=== PATIENT | male | born 1985 | race Two or more races ===

== ENCOUNTER 2017-02-17 11:44 | Emergency (ER) | payer SELFPAY ==
[2017-02-17] MEDS ORDERED: NS 1,000 ML IV ONE (12:00)
[2017-02-17] MEDS ORDERED: LORazepam 2 MG/ML INJ IVP ONE (12:00)
[2017-02-17] MEDS ORDERED: chlordiazePOXIDE 25 MG CAP PO ONE (12:00)
--- NOTE | 2017-02-17 12:06 | EDPHY ---
HPI/HX/ROS/PE/MDM Narrative: CHIEF COMPLAINT: Seizure HPI: The patient is a 31 y/o male, with a history of alcohol withdrawal seizures , arriving via EMS for evaluation after a witnessed seizure this morning in the grass. He normally drinks about 1/5th of vodka daily and his last alcohol intake was yesterday. He denies any pain or injury following the seizure today. He denies any current symptoms. REVIEW OF SYSTEMS: Aside from elements discussed in the HPI, a comprehensive 10-point review of systems was reviewed and is negative. PMH: Ulcerative colitis, hypertension, alcohol abuse and alcohol withdrawal seizures SOCIAL HISTORY: Homeless, alcohol abuse. PHYSICAL EXAM: General:Patient is alert, in no acute distress. ENT:Eyes are normal to inspection. Tongue fasciculations, ENT inspection otherwise normal. Neck: Normal inspection. Full range of motion. Respiratory:No respiratory distress. Breath sounds normal bilaterally. Cardiovascular: Tachycardic regular rate and rhythm. Strong peripheral pulses. Normal cap refill. Abdomen:The abdomen is nontender to palpation. There are no peritoneal signs. Back: Normal to inspection. No tenderness to palpation. Skin: Normal color. No rash. Warm and dry. Extremities: Normal appearance. Full range of motion. Neuro: Oriented x3. Normal motor function. Normal sensory function. ED Course: This is a 31 y/o male with a history of alcohol abuse and withdrawal seizures who presents to the ED following a witness seizure this morning. He is currently asymptomatic. Tongue fasciculations noted. He is neurovascularly intact. There is no indication for imaging. Plan for medical management with 50mg PO Librium, 2mg IV Ativan, and 1L IV NS. The 12 lead EKG was interpreted by myself. Sinus tachycardia rate 103. See hard copy and/or "tracemaster" electronic copy for interpretation. 1315: Reassessed patient. He is sitting up comfortably and watching TV. He is no longer tachycardic and feels ready to go home. If he decides to go to the [facility] we will give him a script for Librium. I've advised him to reduce his alcohol intake and follow up with his PCP. Return precautions given. - Data Points Medications Given: Discontinued Medications Chlordiazepoxide HCl (Librium) 50 mg PO EDNOW ONE Stop: 02/17/17 12:01 Last Admin: 02/17/17 12:12 Dose: 50 mg Sodium Chloride (Ns) 1,000 mls @ 0 mls/hr IV EDNOW ONE; Wide Open PRN Reason: Protocol Stop: 02/17/17 12:01 Last Admin: 02/17/17 12:12 Dose: 1,000 mls Lorazepam (Ativan Injection) 2 mg IVP EDNOW ONE Stop: 02/17/17 12:01 Last Admin: 02/17/17 12:12 Dose: 2 mg General Time Seen by Provider: 02/17/17 11:47 Initial Vital Signs: Initial Vital Signs Temperature (C) 36.7 C 02/17/17 11:53 Heart Rate 113 H 02/17/17 11:53 Respiratory Rate 12 02/17/17 11:53 Blood Pressure 142/82 H 02/17/17 11:53 O2 Sat (%) 95 02/17/17 11:53 O2 Delivery Mode Room Air Allergies/Adverse Reactions: No Known Allergies Allergy (Unverified 02/17/17 12:07) Home Medications: Medication Instructions Recorded NK [No Known Home Meds] 02/17/17 Departure - Departure Disposition: Home, Routine, Self-Care Clinical Impression: Alcohol withdrawal seizure Qualifiers: Complication of substance-induced condition: uncomplicated Qualified Code(s): F10.230 - Alcohol dependence with withdrawal, uncomplicated Condition: Good Instructions: Alcohol Withdrawal (ED) Additional Instructions: Go to the [facility] if you would like to detox. Follow up with your primary care provider for unimproved symptoms over the next 1-2 days. Avoid abusing alcohol. Return to the ED for worsening of condition. Referrals: [facility],. [Clinic] - As per Instructions [facility] Detox 24 Hours [Outside] - As per Instructions Report Scribed for: Vishnu Austin Report Scribed by: Deja Juarez Date of Report: 02/17/17 Time of Report: 12:06 Physician Review and Approval Statement: Portions of this note were transcribed by an ED scribe. I personally performed the history, physical exam, and medical decision making; and confirm the accuracy of the information in the transcribed note.
--- NOTE | 2017-02-17 12:15 | CPEKG ---
Heart Rate: 103 RR Interval: 583 P-R Interval: 180 QRSD Interval: 92 QT Interval: 376 QTC Interval: 492 P [facility]: 66 QRS [facility]: 72 T [place] [facility]: 45 EKG Severity - ABNORMAL ECG - EKG Impression: SINUS TACHYCARDIA EKG Impression: LATERAL INFARCT, OLD EKG Impression: PROLONGED QT INTERVAL Electronically Signed By: Guillermo Bennett 18-Feb-2017 16:29:11
[2017-02-17 12:18] VITALS: TEMP 98.4
[2017-02-17] MEDS ORDERED: CHLORDIAZEPOXIDE 25MG PREPK#6 BTL TAKEHOME ONE (14:02)
[2017-02-17 14:11] VITALS: BP 120/69; PULSE 105; RESP 16; O2SAT 96
== END 2017-02-17 14:31 | disposition home or self-care (01) ==
LOC: EDBD 11:44
DX: R56.9 Unspecified convulsions (principal); F10.230 Alcohol dependence with withdrawal, uncomplicated; I10 Essential (primary) hypertension; E86.9 Volume depletion, unspecified
CPT/HCPCS: 96374; J2060

== ENCOUNTER 2017-03-08 21:29 | Emergency (ER) | payer SELFPAY ==
[2017-03-08 21:46] VITALS: RESP 20
[2017-03-08] MEDS ORDERED: NS 1,000 ML IV ONE (22:12)
[2017-03-08] MEDS ORDERED: ACETAMINOPHEN 325 MG TAB PO ONE (22:12)
[2017-03-08] MEDS ORDERED: LORazepam 2 MG/ML INJ IVP ONE (22:13)
[2017-03-08 22:20] LABS: % IMMATURE GRANULYOCYTES 0.5 % (0.0-1.1); ABSOLUTE IMMATURE GRANULOCYTES 0.04 10^3/uL (0.00-0.10); ADD DIFF? NO; ADD MORPH? NO; ADD SCAN? NO; ATYPICAL LYMPHOCYTE FLAG 0 (0-99); FRAGMENT RBC FLAG 0 (0-99); HEMOGLOBIN 14.2 g/dL (13.7-17.5); LEFT SHIFT FLG 0 (0-99); LIPEMIA HEMOLYSIS FLAG 90 (0-99); MEAN CELL HEMOGLOBIN 31.9 pg (27.9-34.1); MEAN CELL HEMOGLOBIN CONCENTR. 33.8 g/dL (32.4-36.7); MEAN CELL VOLUME 94.4 fL (81.5-99.8); MEAN PLATELET VOLUME 9.7 fL (8.7-11.7); PLATELET CLUMPS FLAG 20 (0-99); PLATELET COUNT 155 10^3/uL (150-400); RED BLOOD CELL COUNT 4.45 10^6/uL (4.40-6.38); RED CELL DISTRIBUTION WIDTH 15.6 % (11.5-15.2)
[2017-03-08 22:30] LABS: ANION GAP 14 mEq/L (8-16); BILIRUBIN,TOTAL 1.2 mg/dL (0.1-1.4); CALCIUM 8.1 mg/dL (8.5-10.4); CARBON DIOXIDE 21 mEq/l (22-31); CHLORIDE 103 mEq/L (97-110); CREATININE 0.7 mg/dL (0.7-1.3); GLOMERULAR FILTRATION RATE > 60; GLUCOSE 137 mg/dL (70-100); INR 1.13 (0.83-1.16); POTASSIUM 3.7 mEq/L (3.5-5.2); PROTIME(PATIENT) 14.4 SEC (12.0-15.0); SODIUM 138 mEq/L (134-144)
[2017-03-09] MEDS ORDERED: NS 1,000 ML IV ONE (00:45)
--- NOTE | 2017-03-09 00:49 | EDPHY ---
H & P Stated Complaint: fever, from [facility] Source: Patient Exam Limitations: No limitations - Medical/Surgical History Hx Asthma: No Hx Chronic Respiratory Disease: No Hx Diabetes: No Hx Cardiac Disease: No Hx Renal Disease: No Hx Cirrhosis: No Hx Alcoholism: Yes Other PMH: withdrawal seizures, ETOH, abd surgery for ulcerative colitis, HTN. - Social History Smoking Status: Light smoker HPI/ROS: HPI: This is a 31-year-old male who presents with Chief Complaint: Fever Location: Body Quality: Fever Duration: 1 hour prior to arrival Signs and Symptoms: No cough, no chills, no abdominal pain, no nausea, no vomiting, no diarrhea, no neck stiffness, no sore throat, no wheezing, no body aches Timing: Unknown Severity: Mild Context: Patient was at the [facility] for alcohol dependence and they noted a temperature of a 101 F orally and sent patient to the ER for evaluation. Patient reports that he last drank yesterday morning. Admits to feeling tremulous; restless. Modifying Factors: No antipyretics given. Librium given but patient unable to tell time. Comment: ROS: Constitutional: No fever, no chills, no weight loss Eyes: No blurred vision Respiratory: No shortness of breath, no cough Cardiovascular: No chest pain Gastrointestinal: No nausea, no vomiting no diarrhea Genitourinary: No dysuria Extremities: No myalgias Neurologic: No weakness, no numbness Skin: No rashes Hematologic: No bruising, no bleeding (Carrie Knutson) - Physical Exam Exam: CONSTITUTIONAL: Chronically ill-appearing male who appears older than stated age, cooperative, awake and alert, no obvious distress HEENT: Atraumatic and normocephalic, PERRL, EOMI. Tympanic membranes clear. Oropharynx clear, no exudate and moist pink mucosa. Airway patent. No lymphadenopathy. No meningismus. Cardiovascular: Normal S1/S2, tachycardia, regular rhythm, without murmur rub or gallop. PULMONARY/CHEST: Symmetrical and nontender. Clear to auscultation bilaterally Good air movement. No accessory muscle usage. ABDOMEN: Soft, nondistended, nontender, no rebound, no guarding, no peritoneal signs, no masses or organomegaly. No CVAT. EXTREMITIES: 2/2 pulses, no deformities, no clubbing, no cyanosis or edema. NEUROLOGICAL: no focal neuro deficits. GCS 15. SKIN: Warm and dry, no erythema. no rash. Good capillary refill. (Carrie Knutson) Constitutional: Initial Vital Signs Temperature (C) 38.9 C H 03/08/17 21:44 Heart Rate 102 H 03/08/17 21:44 Respiratory Rate 20 03/08/17 21:44 Blood Pressure 113/59 L 03/08/17 21:44 O2 Sat (%) 92 03/08/17 21:44 O2 Delivery Mode Room Air Allergies/Adverse Reactions: No Known Allergies Allergy (Unverified 03/08/17 21:44) Home Medications: Medication Instructions Recorded NK [No Known Home Meds] 02/17/17 Medical Decision Making - Diagnostics Imaging Results: Imaging Impressions Chest X-Ray 03/08/17 22:12 Impression: Normal. ED Course/Re-evaluation: Labs, blood culture, urinalysis, chest x-ray Given 2 L of normal saline, IV Ativan, PO Librium and Tylenol CIWA=4 Suspect alcohol withdrawal. Chest x-ray my read shows no infiltrate/effusion/pneumothorax noted lactic acidosis of 2.5; aggressive hydration; suspect inflammatory response Still pending urinalysis Labs grossly unremarkable End of Shift: Signed out to Dr. Faulkner at 0200 pending repeat lactic acid, results of urinalysis and and suspect discharge back to the [facility] (Carrie Knutson) Differential Diagnosis: Adult fever including but not limited to viral syndromes including influenza, urinary tract infection, pneumonia and sepsis. (Carrie Knutson) Other Provider: PHYSICIAN DOCUMENTATION: The patient was evaluated and managed by the Physician Windows System Admin. My co- signature indicates that I have reviewed this chart and I agree with the findings and plan of care as documented. I am the secondary supervising physician. The patient remained stable. UA was unremarkable. Repeat lactate decreased from 2.5-2.2. Doubt sepsis given patient's normal vital signs. Likely a type B lactic acidosis. He will be [facility] back to [facility]. (Margarita Faulkner) - Data Points Laboratory Results: Laboratory Results 03/08/17 22:05 03/08/17 22:05 03/09/17 03/09/17 03/09/17 03:20 02:30 00:20 WBC RBC Hgb Hct MCV MCH MCHC RDW Plt Count MPV Neut % (Auto) Lymph % (Auto) [place] % (Auto) Eos % (Auto) Baso % (Auto) Nucleat RBC Rel Count Absolute Neuts (auto) Absolute Lymphs (auto) Absolute Monos (auto) Absolute Eos (auto) Absolute Basos (auto) Absolute Nucleated RBC Immature Gran % Immature Gran # PT INR APTT VBG Lactic Acid 2.2 mmol/L H mmol/L 2.5 mmol/L H mmol/L (0.7-2.1) (0.7-2.1) Sodium Potassium Chloride Carbon Dioxide Anion Gap BUN Creatinine Estimated GFR Glucose Calcium Total Bilirubin Urine Color YELLOW Urine Appearance CLEAR Urine pH 6.0 (5.0-7.5) Ur Specific [place] 1.013 (1.002-1.030) Urine Protein NEGATIVE (NEGATIVE) Urine Ketones NEGATIVE (NEGATIVE) Urine Blood NEGATIVE (NEGATIVE) Urine Nitrate NEGATIVE (NEGATIVE) Urine Bilirubin NEGATIVE (NEGATIVE) Urine Urobilinogen 4.0 EU H EU (0.2-1.0) Ur Leukocyte Esterase NEGATIVE (NEGATIVE) Urine RBC 1-3 /hpf /hpf (0-3) Urine WBC 1-3 /hpf /hpf (0-3) Ur Epithelial Cells TRACE /lpf /lpf (NONE-1+) Urine Mucus TRACE /lpf /lpf (NONE-1+) Urine Glucose 1+ H (NEGATIVE) 03/08/17 03/08/17 03/08/17 22:05 22:05 22:05 WBC 7.53 10^3/uL 10^3/uL (3.80-9.50) RBC 4.45 10^6/uL 10^6/uL (4.40-6.38) Hgb 14.2 g/dL g/dL (13.7-17.5) Hct 42.0 % % (40.0-51.0) MCV 94.4 fL fL (81.5-99.8) MCH 31.9 pg pg (27.9-34.1) MCHC 33.8 g/dL g/dL (32.4-36.7) RDW 15.6 % H % (11.5-15.2) Plt Count 155 10^3/uL 10^3/uL (150-400) MPV 9.7 fL fL (8.7-11.7) Neut % (Auto) 84.0 % H % (39.3-74.2) Lymph % (Auto) 5.2 % L % (15.0-45.0) [place] % (Auto) 9.8 % % (4.5-13.0) Eos % (Auto) 0.1 % L % (0.6-7.6) Baso % (Auto) 0.4 % % (0.3-1.7) Nucleat RBC Rel Count 0.0 % % (0.0-0.2) Absolute Neuts (auto) 6.32 10^3/uL 10^3/uL (1.70-6.50) Absolute Lymphs (auto) 0.39 10^3/uL L 10^3/uL (1.00-3.00) Absolute Monos (auto) 0.74 10^3/uL 10^3/uL (0.30-0.80) Absolute Eos (auto) 0.01 10^3/uL L 10^3/uL (0.03-0.40) Absolute Basos (auto) 0.03 10^3/uL 10^3/uL (0.02-0.10) Absolute Nucleated RBC 0.00 10^3/uL 10^3/uL (0-0.01) Immature Gran % 0.5 % % (0.0-1.1) Immature Gran # 0.04 10^3/uL 10^3/uL (0.00-0.10) PT 14.4 SEC SEC (12.0-15.0) INR 1.13 (0.83-1.16) APTT 34.0 SEC SEC (23.0-38.0) VBG Lactic Acid Sodium 138 mEq/L mEq/L (134-144) Potassium 3.7 mEq/L mEq/L (3.5-5.2) Chloride 103 mEq/L mEq/L (97-110) Carbon Dioxide 21 mEq/l L mEq/l (22-31) Anion Gap 14 mEq/L mEq/L (8-16) BUN 7 mg/dL mg/dL (7-23) Creatinine 0.7 mg/dL mg/dL (0.7-1.3) Estimated GFR > 60 Glucose 137 mg/dL H mg/dL (70-100) Calcium 8.1 mg/dL L mg/dL (8.5-10.4) Total Bilirubin 1.2 mg/dL mg/dL (0.1-1.4) Urine Color Urine Appearance Urine pH Ur Specific [place] Urine Protein Urine Ketones Urine Blood Urine Nitrate Urine Bilirubin Urine Urobilinogen Ur Leukocyte Esterase Urine RBC Urine WBC Ur Epithelial Cells Urine Mucus Urine Glucose Medications Given: Discontinued Medications Acetaminophen (Tylenol) 650 mg PO EDNOW ONE Stop: 03/08/17 22:13 Last Admin: 03/08/17 22:21 Dose: 650 mg Chlordiazepoxide HCl (Librium) 25 mg PO EDNOW ONE Stop: 03/09/17 00:51 Last Admin: 03/09/17 01:11 Dose: 25 mg Sodium Chloride (Ns) 1,000 mls @ 0 mls/hr IV EDNOW ONE; Wide Open PRN Reason: Protocol Stop: 03/08/17 22:13 Last Admin: 03/08/17 22:21 Dose: 1,000 mls Sodium Chloride (Ns) 1,000 mls @ 0 mls/hr IV EDNOW ONE; Wide Open PRN Reason: Protocol Stop: 03/09/17 00:46 Last Admin: 03/09/17 00:45 Dose: 1,000 mls Lorazepam (Ativan Injection) 1 mg IVP EDNOW ONE Stop: 03/08/17 22:14 Last Admin: 03/08/17 22:22 Dose: 1 mg Departure - Departure Disposition: Home, Routine, Self-Care Clinical Impression: Alcohol dependence Qualifiers: Substance use status: in withdrawal Complication of substance-induced condition : uncomplicated Qualified Code(s): F10.230 - Alcohol dependence with withdrawal , uncomplicated Fever Qualifiers: Fever type: unspecified Qualified Code(s): R50.9 - Fever, unspecified Condition: Good Instructions: Fever in Adults (ED) Referrals: [facility] [Outside] - As per Instructions
[2017-03-09] MEDS ORDERED: chlordiazePOXIDE 25 MG CAP PO ONE (00:50)
[2017-03-09 01:25] LABS: LACGHOST ORDER
[2017-03-09 02:41] LABS: COLOR YELLOW; LEUKOCYTE ESTERASE,URINE NEGATIVE (NEGATIVE); NITRITE,URINE NEGATIVE (NEGATIVE)
[2017-03-09 02:43] LABS: MUCUS TRACE /lpf (NONE-1+)
[2017-03-09 03:42] VITALS: O2SAT 93
[2017-03-09] MEDS ORDERED: CHLORDIAZEPOXIDE 25MG PREPK#6 BTL TAKEHOME ONE (04:37)
[2017-03-09] MEDS ORDERED: ACETAMINOPHEN 325 MG TAB ONE (04:52)
[2017-03-09] MEDS ORDERED: ACETAMINOPHEN 500 MG TAB PO ONE (05:00)
[2017-03-09 05:05] VITALS: BP 120/75; PULSE 89; TEMP 99.5
== END 2017-03-09 05:05 | disposition home or self-care (01) ==
LOC: EDUNIT#
DX: R50.9 Fever, unspecified (principal); F10.230 Alcohol dependence with withdrawal, uncomplicated; F17.200 Nicotine dependence, unspecified, uncomplicated; E86.9 Volume depletion, unspecified; I10 Essential (primary) hypertension
CPT/HCPCS: 96374; J2060

== ENCOUNTER 2017-03-09 11:07 | Inpatient (IN) | payer MEDICAID, OTHER ==
[2017-03-09] MEDS ORDERED: LORazepam 2 MG/ML INJ IVP ONE (11:15)
[2017-03-09] MEDS ORDERED: NS 1,000 ML IV ONE (11:15)
[2017-03-09] MEDS ORDERED: VANCOMYCIN HCL/NORMAL SALINE 250 ML IV ONE (11:15)
[2017-03-09] MEDS ORDERED: FOLIC ACID 1 MG TAB PO ONE (11:16)
[2017-03-09] MEDS ORDERED: THIAMINE HCL 100 MG TAB PO ONE (11:16)
--- NOTE | 2017-03-09 11:20 | EDPHY ---
H & P Stated Complaint: Left Thumb Infection - Personal History Current Tetanus Diphtheria and Acellular Pertussis (TDAP): Yes Tetanus Vaccine Date: 2007 - Medical/Surgical History Hx Asthma: No Hx Chronic Respiratory Disease: No Hx Diabetes: No Hx Cardiac Disease: No Hx Renal Disease: No Hx Cirrhosis: No Hx Alcoholism: Yes Other PMH: withdrawal seizures, ETOH, abd surgery for ulcerative colitis, HTN. - Social History Smoking Status: Light smoker Time Seen by Provider: 03/09/17 11:11 HPI/ROS: CHIEF COMPLAINT: "My thumbs infected" HISTORY OF PRESENT ILLNESS: 31-year-old homeless male, history of cutaneous MRSA, up-to-date tetanus, arrives via ambulance. [facility] and this morning and called 911 because of progressive pain swelling to his left thumb with lymphangitic streaking. States that he sustained a puncture wound to his left thumb 3 days ago however is not sure how this happened. He has progressively decreasing range of motion Denies exposure to high speed projectiles or high-pressure hoses or paint. Denies fever or chills. PRIMARY CARE PROVIDER: REVIEW OF SYSTEMS: A ten point review of systems was performed and is negative with the exception of the items mentioned in the HPI PAST MEDICAL & SURGICAL HISTORY: alcoholism SOCIAL HISTORY: homeless. History of alcoholism. Last drink of alcohol last evening PHYSICAL EXAM (Prior to examination, patient consented to physical exam, hands were washed and my usual and customary physical exam procedures followed) 1) GENERAL: Well-developed, well-nourished, alert and oriented. Appears anxious 2) HEAD: Normocephalic, atraumatic 3) HEENT: Pupils equal, round, reactive to light bilaterally. Sclera anicteric. 4) NECK: Full range of motion, no meningeal signs. 5) LUNGS: Clear auscultation bilaterally, no wheezes, no rhonchi, no retractions. 6) HEART: Regular rate and rhythm, no murmur, no heave, no gallop. 7) ABDOMEN: No guarding, no rebound, no focal tenderness, negative McBurney's, negative Sanon's, negative Rovsing's, negative peritoneal sign, 8) MUSCULOSKELETAL: left upper extremity: Left thumb positive kanavel sign, puncture wound noted, no crepitus. Lymphangitic streaking extending to his proximal bicep , positive axillary adenopathy . Moving all extremities, no focal areas of tenderness, no obvious trauma. No peripheral edema or discoloration. 9) BACK: No CVA tenderness, no midline vertebral tenderness, no fluctuance, no step-off, no obvious trauma, no visual or palpable abnormality. 10) SKIN: No rash, no petechiae. 11) Psychiatric: Patient is oriented X 3, there is no agitation. DIFFERENTIAL DIAGNOSIS: in no particular include but limited to cellulitis, infectious tenosynovitis, necrotizing fasciitis (Jl Lugo [place]) Constitutional: Initial Vital Signs Temperature (C) 37.1 C 03/09/17 11:13 Heart Rate 94 03/09/17 11:13 Respiratory Rate 18 03/09/17 11:13 Blood Pressure 115/74 03/09/17 11:13 O2 Sat (%) 97 03/09/17 11:13 O2 Delivery Mode Room Air Allergies/Adverse Reactions: No Known Allergies Allergy (Unverified 03/09/17 11:12) Home Medications: Medication Instructions Recorded NK [No Known Home Meds] 02/17/17 Medical Decision Making - Diagnostics Imaging Results: Imaging Impressions Hand X-Ray 03/09/17 11:17 Impression: Left thumb soft tissue swelling without definite fracture. ED Course/Re-evaluation: I have discussed case Dr. Newton Martinez in the ER. The patient has exam findings concerning for infectious tenosynovitis with lymphangitis extending to his axilla. He is afebrile. I do not think the patient is septic. Doubt necrotizing fasciitis. He is homeless without outpatient medical support. I recommended admission to the hospital. Will consult with Hand surgery and hospitalist. In addition, he has a history of alcoholism and is starting to show no signs symptoms of acute alcohol withdrawal. Will administer IV benzodiazepine , supplemental folate and thiamine. doubt delirium tremens at this time. 11:50 a.m.: Phone consultation with hospitalist Blanca admit to Dr. Moreland 12:30 p.m.: Phone consultation with Dr. Gualberto Francisco who will consult hand surgery (Jl Lugo) I did not see this patient while he was in the emergency department. However his care was discussed with the PA while the patient was in the department. I agree with treatment plan and management (Newton Martinez) - Data Points Laboratory Results: Laboratory Results 03/09/17 11:30 03/09/17 11:30 03/09/17 03/09/17 03/09/17 11:30 11:30 11:30 WBC 7.90 10^3/uL 10^3/uL (3.80-9.50) RBC 4.31 10^6/uL L 10^6/uL (4.40-6.38) Hgb 13.9 g/dL g/dL (13.7-17.5) Hct 40.5 % % (40.0-51.0) MCV 94.0 fL fL (81.5-99.8) MCH 32.3 pg pg (27.9-34.1) MCHC 34.3 g/dL g/dL (32.4-36.7) RDW 15.1 % % (11.5-15.2) Plt Count 142 10^3/uL L 10^3/uL (150-400) MPV 9.6 fL fL (8.7-11.7) Neut % (Auto) 78.9 % H % (39.3-74.2) Lymph % (Auto) 9.2 % L % (15.0-45.0) [place] % (Auto) 10.8 % % (4.5-13.0) Eos % (Auto) 0.1 % L % (0.6-7.6) Baso % (Auto) 0.6 % % (0.3-1.7) Nucleat RBC Rel Count 0.0 % % (0.0-0.2) Absolute Neuts (auto) 6.23 10^3/uL 10^3/uL (1.70-6.50) Absolute Lymphs (auto) 0.73 10^3/uL L 10^3/uL (1.00-3.00) Absolute Monos (auto) 0.85 10^3/uL H 10^3/uL (0.30-0.80) Absolute Eos (auto) 0.01 10^3/uL L 10^3/uL (0.03-0.40) Absolute Basos (auto) 0.05 10^3/uL 10^3/uL (0.02-0.10) Absolute Nucleated RBC 0.00 10^3/uL 10^3/uL (0-0.01) Immature Gran % 0.4 % % (0.0-1.1) Immature Gran # 0.03 10^3/uL 10^3/uL (0.00-0.10) PT 15.2 SEC H SEC (12.0-15.0) INR 1.20 H (0.83-1.16) APTT 35.7 SEC SEC (23.0-38.0) VBG Lactic Acid Sodium 137 mEq/L mEq/L (134-144) Potassium 3.2 mEq/L L mEq/L (3.5-5.2) Chloride 104 mEq/L mEq/L (97-110) Carbon Dioxide 23 mEq/l mEq/l (22-31) Anion Gap 10 mEq/L mEq/L (8-16) BUN 7 mg/dL mg/dL (7-23) Creatinine 0.6 mg/dL L mg/dL (0.7-1.3) Estimated GFR > 60 Glucose 97 mg/dL mg/dL (70-100) Calcium 8.0 mg/dL L mg/dL (8.5-10.4) Total Bilirubin 1.9 mg/dL H D mg/dL (0.1-1.4) 03/09/17 11:20 WBC RBC Hgb Hct MCV MCH MCHC RDW Plt Count MPV Neut % (Auto) Lymph % (Auto) [place] % (Auto) Eos % (Auto) Baso % (Auto) Nucleat RBC Rel Count Absolute Neuts (auto) Absolute Lymphs (auto) Absolute Monos (auto) Absolute Eos (auto) Absolute Basos (auto) Absolute Nucleated RBC Immature Gran % Immature Gran # PT INR APTT VBG Lactic Acid 1.4 mmol/L D mmol/L (0.7-2.1) Sodium Potassium Chloride Carbon Dioxide Anion Gap BUN Creatinine Estimated GFR Glucose Calcium Total Bilirubin Medications Given: Discontinued Medications Folic Acid (Folic Acid) 1 mg PO EDNOW ONE Stop: 03/09/17 11:17 Last Admin: 03/09/17 11:20 Dose: 1 mg Sodium Chloride (Ns) 1,000 mls @ 0 mls/hr IV ONCE ONE PRN Reason: Wide Open Stop: 03/09/17 11:16 Last Admin: 03/09/17 11:21 Dose: 1,000 mls Vancomycin/Sodium Chloride (Vancomycin 1 Gm (Premix)) 250 mls @ 250 mls/hr IV EDNOW ONE PRN Reason: Protocol Stop: 03/09/17 12:14 Last Admin: 03/09/17 11:21 Dose: 250 mls Ketorolac Tromethamine (Toradol) 30 mg IVP EDNOW ONE Stop: 03/09/17 12:16 Last Admin: 03/09/17 12:17 Dose: 30 mg Lorazepam (Ativan Injection) 2 mg IVP EDNOW ONE Stop: 03/09/17 11:16 Last Admin: 03/09/17 11:21 Dose: 2 mg Thiamine HCl (Vitamin B-1) 100 mg PO EDNOW ONE Stop: 03/09/17 11:17 Last Admin: 03/09/17 11:20 Dose: 100 mg Departure - Departure Disposition: [facility] Clinical Impression: withdrawl from alcohol, Infectious flexor tenosynovitis left samantha Condition: Fair
[2017-03-09 11:39] LABS: % IMMATURE GRANULYOCYTES 0.4 % (0.0-1.1); ABSOLUTE IMMATURE GRANULOCYTES 0.03 10^3/uL (0.00-0.10); ADD DIFF? NO; ADD MORPH? NO; ADD SCAN? NO; ATYPICAL LYMPHOCYTE FLAG 0 (0-99); FRAGMENT RBC FLAG 0 (0-99); HEMATOCRIT 40.5 % (40.0-51.0); HEMOGLOBIN 13.9 g/dL (13.7-17.5); LEFT SHIFT FLG 10 (0-99); LIPEMIA HEMOLYSIS FLAG 90 (0-99); MEAN CELL HEMOGLOBIN 32.3 pg (27.9-34.1); MEAN CELL HEMOGLOBIN CONCENTR. 34.3 g/dL (32.4-36.7); MEAN PLATELET VOLUME 9.6 fL (8.7-11.7); PLATELET CLUMPS FLAG 10 (0-99); PLATELET COUNT 142 10^3/uL (150-400); RED BLOOD CELL COUNT 4.31 10^6/uL (4.40-6.38); RED CELL DISTRIBUTION WIDTH 15.1 % (11.5-15.2)
[2017-03-09 11:50] LABS: INR 1.2 (0.83-1.16); PROTIME(PATIENT) 15.2 SEC (12.0-15.0)
[2017-03-09 11:51] LABS: APTT 35.7 SEC (23.0-38.0)
[2017-03-09 12:11] LABS: ANION GAP 10 mEq/L (8-16); BILIRUBIN,TOTAL 1.9 mg/dL (0.1-1.4); CARBON DIOXIDE 23 mEq/l (22-31); CHLORIDE 104 mEq/L (97-110); CREATININE 0.6 mg/dL (0.7-1.3); GLOMERULAR FILTRATION RATE > 60; GLUCOSE 97 mg/dL (70-100); POTASSIUM 3.2 mEq/L (3.5-5.2); SODIUM 137 mEq/L (134-144)
[2017-03-09] MEDS ORDERED: KETOROLAC 30 MG/1 ML SDV IVP ONE (12:15)
--- NOTE | 2017-03-09 13:29 | GCON ---
[f rep st] CONSULTATION PLASTIC SURGERY CONSULTATION DATE OF CONSULTATION: 03/09/2017 HISTORY OF PRESENTING COMPLAINT: The patient is a 31-year-old homeless man, who apparently has a his tory of cutaneous MRSA who sustained some kind of injury to his left thumb in the last few days that he does not recall. He has had increasing pain and swelling in the past couple days. PAST MEDICAL HISTORY: Positive for alcoholism. PAST SURGICAL HISTORY: Appendectomy and apparently some kind of peptic ulcer disease. SOCIAL HISTORY: Tetanus status is up to date. PHYSICAL EXAMINATION: VITAL SIGNS: He is afebrile. Vitals are stable. EXTREMITIES: Examination o f the relevant region shows acute swelling of the distal segment, particularly the volar pad of the l eft thumb. There is a small puncture wound evident on the radial side of the thumb just lateral to t he lateral nail fold area. He is acutely tender over this area and tenderness does extend proximal t o the pad over the flexor surface of the thumb, but it is markedly less tender over the flexor tendon . Redness extends up above the arm in the form of lymphangitic streaks that extended right up to the axilla, which is itself tender. Movement of the thumb is limited, but only moderately. LABORATORY DATA: Lab investigations reveal that his white count is not elevated. X-ray does not show any sign of foreign body. IMPRESSION AND PLAN: Lymphangitis and cellulitis of left hand and arm. I do not think there is any sign of tenosynovitis or of a joint infection. Agree with antibiotic treatment and coverage for resi stant Staphylococcus. I will continue to follow him in the next day or two. /[id number]/MODL
[2017-03-09] MEDS ORDERED: ONDANSETRON 4 MG/2 ML VIAL IVP PRN (13:46)
[2017-03-09] MEDS ORDERED: HYDROmorphONE/DILAUDID 1 MG/ML INJ IVP PRN (13:46)
[2017-03-09] MEDS ORDERED: LORazepam 2 MG/ML INJ IVP PRN ×2 (13:46)
[2017-03-09] MEDS ORDERED: MAG HYDROX/AL HYDROX/SIMETH 30 ML UDCUP PO PRN (13:46)
[2017-03-09] MEDS ORDERED: PROMETHAZINE HCL 25 MG/ML INJ IVP PRN (13:46)
[2017-03-09] MEDS ORDERED: ONDANSETRON DISINTEGRATING 4 MG TAB PO PRN (13:46)
[2017-03-09] MEDS ORDERED: PROTOCOL K PHOSPHATE 1 DOSE IV PRN (15:45)
[2017-03-09] MEDS ORDERED: PROTOCOL POTASSIUM 1 DOSE MISC PRN (15:45)
[2017-03-09] MEDS ORDERED: PROTOCOL MAGNESIUM 1 DOSE IV PRN (15:45)
[2017-03-09] MEDS: oxyCODONE IR 5 MG TAB PO PRN ×2 (16:14→22:52)
[2017-03-09] MEDS: LORazepam 1 MG TAB PO PRN (16:14)
[2017-03-09] MEDS ORDERED: POTASSIUM CL 10 MEQ TAB PO ONE ×2 (16:26→22:09)
--- NOTE | 2017-03-09 16:31 | GHP ---
[f rep st] HISTORY AND PHYSICAL DATE OF ADMISSION: 03/09/2017 CHIEF COMPLAINT: Left thumb swelling and pain. HISTORY: This is a 31-year-old homeless man who has a history of cutaneous MRSA as well as alcohol a buse and withdrawal, who presents after [facility] morning with compl aints of progressive pain and swelling of the left thumb with streaking up his left arm. The patient is uncertain what happened to his thumb, but states he had some sort of puncture wound to the thumb. He has not had fevers or chills. He does continue to have symptoms of withdrawal. He states he pl ans on quitting alcohol. PAST MEDICAL HISTORY: Includes alcohol abuse with withdrawal and alcohol withdrawal-related seizures . FAMILY HISTORY: This was reviewed and is unremarkable. SOCIAL HISTORY: The patient is a heavy drinker, though he has a hard time describing exactly how muc h alcohol he drinks. He states his last drink was last night. He is homeless. REVIEW OF SYSTEMS: A 10-point review of systems obtained and negative except as per HPI. HOME MEDICATIONS: None. ALLERGIES: None. PHYSICAL EXAM: VITAL SIGNS: BP 125/75, heart rate 83, respiratory rate 16, O2 sat 96% on room air, temperature is 37.1. GENERAL APPEARANCE: Well-developed/well-nourished man. He is tremulous. He i s in no acute distress. EYES: Anicteric. HENT: Oropharynx clear. CARDIOVASCULAR: Regular rate a nd rhythm. No MRG. PULMONARY: CTA bilaterally to anterior exam. ABDOMEN: Soft, positive bowel so unds. EXTREMITIES: No clubbing, cyanosis, or edema. SKIN: There is a puncture wound with purulent drainage coming from the distal left thumb. There is lymphangitic streaking up the left arm. Range of motion seems to be intact. NEURO/PSYCH: Tremulous but otherwise oriented, appropriate, pleasant . CLINICAL DATA: Labs reviewed. CBC remarkable for white blood cell count of 7.9. Chemistry is notab le for a potassium of 3.2 and a bilirubin of 1.9. Hand x-ray: This was personally reviewed and interpreted and shows left thumb soft tissue swelling w ithout fracture. ASSESSMENT/PLAN: A 31-year-old homeless male with alcohol abuse presenting with left hand cellulitis and lymphangitis, as well as alcohol withdrawal. 1. Lymphangitis/cellulitis. This was evaluated by Dr. Francisco, and he did not feel there was any sign of tenosynovitis or joint infection. He has been started on IV vancomycin empirically. Cultures peña ve been drawn and are pending. He is hemodynamically stable without signs of sepsis. Will ask ID to get involved as well. 2. Alcohol abuse and withdrawal. The patient continues to have withdrawals. Last drink was last ni ght. He does have a history of severe withdrawal including withdrawal seizures. Will monitor on CIW A. Will start some scheduled Librium. 3. Hypokalemia in the setting of heavy alcohol abuse and likely poor p.o. intake. Will start electr olyte protocol. 4. Elevated bilirubin. Will check a full liver function panel and trend. Suspect likely due to alc oholic hepatitis. 5. Disposition. Observation status. Will need less than 48 hours stay for evaluation and managemen t of above. /[id number]/MODL
[2017-03-09 18:48] LABS: BILIRUBIN,TOTAL 1.9 mg/dL (0.1-1.4); BILIRUBIN-CONJUGATED 0.7 mg/dL (0.0-0.5); BILIRUBIN-UNCONJUGATED 1.2 mg/dL (0.0-1.1); TOTAL PROTEIN 6.5 g/dL (6.3-8.2)
[2017-03-09 19:01] LABS: MAGNESIUM 1.5 mg/dL (1.6-2.3); POTASSIUM 3.7 mEq/L (3.5-5.2)
[2017-03-09] MEDS: VANCOMYCIN 1.25 GM in D5W 250 ML IV SCH (22:53)
[2017-03-10 04:49] LABS: % IMMATURE GRANULYOCYTES 0.4 % (0.0-1.1); ABSOLUTE IMMATURE GRANULOCYTES 0.03 10^3/uL (0.00-0.10); ADD DIFF? NO; ADD MORPH? NO; ADD SCAN? NO; ATYPICAL LYMPHOCYTE FLAG 0 (0-99); FRAGMENT RBC FLAG 0 (0-99); HEMOGLOBIN 13.8 g/dL (13.7-17.5); LEFT SHIFT FLG 20 (0-99); LIPEMIA HEMOLYSIS FLAG 80 (0-99); MEAN CELL HEMOGLOBIN 31.8 pg (27.9-34.1); MEAN CELL HEMOGLOBIN CONCENTR. 33.7 g/dL (32.4-36.7); MEAN CELL VOLUME 94.5 fL (81.5-99.8); MEAN PLATELET VOLUME 10.2 fL (8.7-11.7); PLATELET CLUMPS FLAG 30 (0-99); PLATELET COUNT 138 10^3/uL (150-400); RED BLOOD CELL COUNT 4.34 10^6/uL (4.40-6.38); RED CELL DISTRIBUTION WIDTH 14.6 % (11.5-15.2)
[2017-03-10 05:09] LABS: ALANINE AMINOTRANSFERASE 92 IU/L (21-72); ALBUMIN 3.1 g/dL (3.5-5.0); ALKALINE PHOSPHATASE 125 IU/L (38-126); ANION GAP 10 mEq/L (8-16); ASPARTATE AMINOTRANSFERASE 63 IU/L (17-59); BILIRUBIN,TOTAL 1.7 mg/dL (0.1-1.4); CALCIUM 8.4 mg/dL (8.5-10.4); CARBON DIOXIDE 22 mEq/l (22-31); CHLORIDE 104 mEq/L (97-110); CREATININE 0.6 mg/dL (0.7-1.3); GLOMERULAR FILTRATION RATE > 60; GLUCOSE 84 mg/dL (70-100); MAGNESIUM 1.7 mg/dL (1.6-2.3); POTASSIUM 3.8 mEq/L (3.5-5.2); SODIUM 136 mEq/L (134-144); TOTAL PROTEIN 6.2 g/dL (6.3-8.2)
[2017-03-10] MEDS: THIAMINE HCL 100 MG TAB PO SCH (08:43)
[2017-03-10] MEDS: LORazepam 1 MG TAB PO PRN ×3 (08:43→19:08)
[2017-03-10] MEDS: oxyCODONE IR 5 MG TAB PO PRN ×3 (08:43→19:08)
[2017-03-10] MEDS: ACETAMINOPHEN 325 MG TAB PO PRN (08:43)
[2017-03-10] MEDS: FOLIC ACID 1 MG TAB PO SCH (08:44)
[2017-03-10] MEDS: MULTIVITAMINS 1 EACH TAB PO SCH (08:44)
[2017-03-10] MEDS ORDERED: POTASSIUM CL 10 MEQ TAB PO ONE (10:35)
[2017-03-10] MEDS ORDERED: MAGNESIUM SULF 1 GM/DEXTROSE 100 ML IV ONE (10:36)
[2017-03-10] MEDS: VANCOMYCIN 1.25 GM in D5W 250 ML IV SCH (11:06)
--- NOTE | 2017-03-10 11:59 | HOSPPROG ---
Hospitalist Progress Note Assessment/Plan: 31 yo homeless M presenting with pain/swelling in left thumb with streaking up his arm to his axilla # cellulitis/lymphangitis: involving the left thumb and extending to left axilla. Seen by hand surgery and they do not feel that this requires surgical intervention at this time but will continue to follow. On exam, thumb appears possibly slightly more swollen but purulent drainage has stopped. Continue vancomycin for now, blood cultures with ngtd. ID to evaluate to help with abx choice. # h/o cutaneous MRSA: will continue vanco for now pending culture data # etoh abuse and w/d: patient continues to have e/o etoh withdrawal with tremulousness today, he feels as if the withdrawal is improving overall, will continue ciwa/mvi/thiamine/folate # IP status, given ongoing withdrawal and only minimal improvement in cellulitis he will require > 48 hours stay Reviewed care plan with ID. Subjective: no significant overnight events, patient states his hand feels about the same since yesterday, thinks the withdrawal is improving some Objective: Vital Signs Temp Pulse Resp BP Pulse Ox 36.9 C 76 14 129/76 H 96 03/10/17 08:00 03/10/17 08:00 03/10/17 08:00 03/10/17 08:00 03/10/17 08:00 Laboratory Results 03/10/17 04:18 03/10/17 04:18 03/09/17 03/10/17 03/11/17 05:59 05:59 05:59 Intake Total 2000 Output Total 2049 500 Balance -50 -500 PT 15.2 SEC (12.0-15.0) H 03/09/17 11:30 INR 1.20 (0.83-1.16) H 03/09/17 11:30 awake alert anicteric op clear rrr no mrg cta to ant exam soft nt nd left thumb with significant edema, dec rom, drainage has stopped, streaking erythema still present but decreased tremulous anxious oriented ICD10 Worksheet Patient Problems: Problems Problem Status Onset Cellulitis Acute
[2017-03-10] MEDS: ceFAZolin 2 GM/DEXTROSE 100 ML IV SCH ×2 (13:46→22:05)
--- NOTE | 2017-03-10 14:12 | GCON ---
[f rep st] CONSULTATION INFECTIOUS DISEASE CONSULTATION DATE OF CONSULTATION: 03/10/2017 REFERRING PHYSICIAN: Tiesha Moreland MD REASON FOR CONSULTATION: Left thumb cellulitis of metastatic spread. CHIEF COMPLAINT: Swollen left thumb and right arm. HISTORY OF PRESENT ILLNESS: This is a 31-year-old male with a past medical history significant for a lcoholism, previous injection drug usage with meth and heroin, depression, homeless, who states that he has had progressive swelling and pain over the left thumb over the past 1 week. He isn't sure wha t happened to his thumb. He does not know if he injured it, or if there was some type of penetrating injury. He does have a puncture wound to the th umb. There was pus draining out yesterday. He denies fevers or chills. He states that there has be en redness spreading up his forearm as well, and he has quite a bit of pain involving his thumb. He had an x-ray of the thumb, which showed no foreign body or gas in the soft tissues. He was seen by h and surgery, Dr. Francisco, who clinically felt he did not have tenosynovitis. He was started on vancomy [place]. Blood cultures x2 sets were drawn and today they are growing out group A strep in all 4 bottles from the . He had some blood cultures done on the as well, and those are not growing anythin g as of right now. Apparently, he came to the ED twice, once late in the evening on the , into ea y morning , and then came back again on the . The patient states that the redness is maybe s lightly better, but continues to be present over the forearm. Infectious Disease is now consulted fo r further evaluation and opinion. REVIEW OF SYSTEMS: GENERAL: Denied any fever, chills. HEAD: No headaches. EYES: No change in vi mikie. ENT: No sore throat, difficulty swallowing, ear pain, or ear drainage. CARDIOVASCULAR: Alexander es any chest pain or rapid heartbeat. RESPIRATORY: Denied any shortness of breath, cough or sputum production. ABDOMEN: No nausea, vomit ing, abdominal pain, or diarrhea. : Denied dysuria or hematuria. BACK: No back pain. MUSCULOSK ELETAL: No other joint pains or muscle aches, other than what was stated above. SKIN: No other hever hes or open wounds, other than what was stated above. The rest of a 10-point review of systems essen tially negative except for above. PAST MEDICAL HISTORY: Significant for alcohol abuse, alcohol withdrawal, related seizures, history o f injection, drug use with meth and heroin, depression, previous history of suicidal ideation, was st della in . Per previous dictation, there was history of cutaneous MRSA, although, in inocente hughes in system, I see no cultures obtained that document that over the past couple of years. PAST SURGICAL HISTORY: Significant for appendectomy and some other type of surgery, where he states he had ulcers. It is not clear what he is speaking about. ALLERGIES: No known drug allergies. SOCIAL HISTORY: He smokes several cigarettes a day. He drinks a 5th each day. He denies using illi cit drugs currently. He does use marijuana occasionally. He is homeless. FAMILY HISTORY: Significant for diabetes. MEDICATIONS: As per AUG. PHYSICAL EXAMINATION: VITAL SIGNS: Temperature current 36.9, T-max was actually on the 8th at 38.9, pulse 76, respiratory rate is 14, blood pressure 129/76. Saturations are 96% on room air. GENERAL: Patient is sitting up in bed, in no acute respiratory distress. Awake, alert, and oriented x3. HE ENT: Head is normocephalic, atraumatic. Hair is red. Eyes without conjunctival injection or petech iae noted. Oropharynx is clear. No ulcers or thrush appreciated. CARDIOVASCULAR: S1, S2. Regular rate and rhythm. No obvious murmurs appreciated. RESPIRATORY: Cl ear to auscultate bilaterally. No rhonchi or rales appreciated. ABDOMEN: Positive bowel sounds in all 4 quadrants. Soft, nontender, nondistended. No organomegaly appreciated. EXTREMITIES: No lowe r extremity edema. MUSCULOSKELETAL: No obvious joint effusions in the lower extremities. SKIN: Pe rtinent findings, left thumb diffusely swollen with no obvious drainage at present. There is some ma ceration of the soft tissues, especially at the distal tip, with pain on palpation. There is celluli tis extending from the thumb into the forearm lymphangitic spread. SKIN: Warm to touch. LABORATORY DATA: White blood cell count of 7.0, hemoglobin 13.8, platelets are 138, neutrophils 65%. Sodium 136, potassium 3.8, chloride 74, bicarb 22, BUN is 7, creatinine 0.6. AST 63, ALT 62, alk p hos 125, total bilirubin 1.7. Urinalysis: Negative nitrites, negative leuk esterase, WBCs 1-3. Blo od cultures, again as mentioned, 4 out of 8 bottles positive for gram-positive cocci in chains, sugge stive of group A strep by PCR, from the . Imaging results have all been reviewed by me and are stated above. ASSESSMENT: 1. Group A strep bacteremia/sepsis. 2. Left thumb cellulitis with lymphangitic spread and possibly an abscess. 3. Elevated liver function tests. 4. History of alcohol abuse. PLAN: At this point in time, given group A strep in the blood cultures, likely this process is drive n by that. We will change vancomycin to Ancef for more directive therapy. We will repeat blood cult ures in the a.m., to follow course of therapy. Would check an HIV, hepatitis C and hepatitis B serol ogies. The patient gave me verbal consent. Would also recommend MRI to further evaluate for abscess pocket, tenosynovitis, etc. Thank you very much for providing this opportunity to care for patient in consultation. /[id number]/MODL
--- NOTE | 2017-03-10 17:08 | ASMTCMCOM ---
CM Note CM Note Notes: Pt was admitted with L thumb cellulitis. Seen by DONATO vasquez changed to Ancef, cultures pending. Pt is homeless and from [place]. Receives health care through [facility] in [facility] of MRSA, etoh abuse and withdrawal w/seizures. Currently on CIWA protocol. CM will follow for any d/c needs. Date Signed: 03/10/2017 02:42 PM Electronically Signed By:Josephine Whiting
[2017-03-11 04:44] LABS: % IMMATURE GRANULYOCYTES 0.2 % (0.0-1.1); ABSOLUTE IMMATURE GRANULOCYTES 0.01 10^3/uL (0.00-0.10); ADD DIFF? NO; ADD MORPH? NO; ADD SCAN? NO; ATYPICAL LYMPHOCYTE FLAG 0 (0-99); FRAGMENT RBC FLAG 0 (0-99); HEMATOCRIT 43.8 % (40.0-51.0); HEMOGLOBIN 14.6 g/dL (13.7-17.5); LEFT SHIFT FLG 10 (0-99); LIPEMIA HEMOLYSIS FLAG 80 (0-99); MEAN CELL HEMOGLOBIN CONCENTR. 33.3 g/dL (32.4-36.7); MEAN CELL VOLUME 96.1 fL (81.5-99.8); MEAN PLATELET VOLUME 10.8 fL (8.7-11.7); PLATELET CLUMPS FLAG 0 (0-99); PLATELET COUNT 184 10^3/uL (150-400); RED BLOOD CELL COUNT 4.56 10^6/uL (4.40-6.38); RED CELL DISTRIBUTION WIDTH 14.8 % (11.5-15.2)
[2017-03-11 05:03] LABS: ANION GAP 8 mEq/L (8-16); CARBON DIOXIDE 26 mEq/l (22-31); CHLORIDE 102 mEq/L (97-110); CREATININE 0.7 mg/dL (0.7-1.3); GLOMERULAR FILTRATION RATE > 60; GLUCOSE 91 mg/dL (70-100); MAGNESIUM 2.1 mg/dL (1.6-2.3); POTASSIUM 3.8 mEq/L (3.5-5.2); SODIUM 136 mEq/L (134-144)
[2017-03-11] MEDS: ceFAZolin 2 GM/DEXTROSE 100 ML IV SCH ×3 (05:19→21:53)
[2017-03-11] MEDS: oxyCODONE IR 5 MG TAB PO PRN ×4 (06:10→21:51)
[2017-03-11] MEDS ORDERED: POTASSIUM CL 10 MEQ TAB PO ONE (08:27)
[2017-03-11] MEDS: MULTIVITAMINS 1 EACH TAB PO SCH (08:49)
[2017-03-11] MEDS: THIAMINE HCL 100 MG TAB PO SCH (08:50)
[2017-03-11] MEDS: FOLIC ACID 1 MG TAB PO SCH (08:50)
--- NOTE | 2017-03-11 10:21 | HOSPPROG ---
Hospitalist Progress Note Assessment/Plan: 31 yo homeless M presenting with pain/swelling in left thumb with streaking up his arm to his axilla # cellulitis/lymphangitis with Grp A strep bacteremia (without signs of joint involvement or tenosynovitis) -cont Ancef per ID -ID and hand surgery consults reviewed # etoh abuse and w/d: patient continues to have e/o etoh withdrawal with tremulousness today, he feels as if the withdrawal is improving overall, will continue ciwa/mvi/thiamine/folate # Newly diagnosed Hep C -pt informed of the diagnosis. Cautioned on the use of alcohol in the setting of Hep C. Will need outpatient evaluation and workup for treatment # IP status, given ongoing withdrawal and only minimal improvement in cellulitis he will require > 48 hours stay # h/o cutaneous MRSA dispo: pt will need extended treatment with ivabx and will not be a candidate for outpt infusion given his history of substance abuse Subjective: no fever or chills. pain, swelling, and redness inproving in left arm. no hallucinations Objective: Vital Signs Temp Pulse Resp BP Pulse Ox 37.0 C 80 16 119/70 94 03/11/17 07:19 03/11/17 07:19 03/11/17 07:19 03/11/17 07:19 03/11/17 07:19 Laboratory Results 03/11/17 04:00 03/11/17 04:00 03/10/17 03/11/17 03/12/17 05:59 05:59 05:59 Intake Total 600 Output Total 1200 Balance -600 PT 15.2 SEC (12.0-15.0) H 03/09/17 11:30 INR 1.20 (0.83-1.16) H 03/09/17 11:30 - Physical Exam Cardiovascular: regular rate and rhythym, no murmur, rub, or gallop Respiratory: no respiratory distress, no rales or rhonchi, clear to auscultation Skin: warm, other (improving erythematous streaking up volar left arm) Neurologic: AAOx3, other (no tremor) ICD10 Worksheet Patient Problems: Problems Problem Status Onset Cellulitis Acute
[2017-03-11] MEDS ORDERED: POLYETHYLENE GLYCOL 3350 17 GM PKT PO PRN (12:30)
[2017-03-11] MEDS ORDERED: LACTULOSE 20 GM/30 ML UDCUP PO PRN (12:30)
[2017-03-11] MEDS ORDERED: MAGNESIUM HYDROXIDE 30 ML UDCUP PO PRN (12:30)
[2017-03-11] MEDS ORDERED: BISACODYL 10 MG SUPP PR PRN (12:30)
[2017-03-11] MEDS: SENNOSIDES/DOCUSATE SODIUM TAB PO SCH ×2 (13:47→21:51)
--- NOTE | 2017-03-11 14:07 | PCMIDPN ---
Assessment/Plan: Assessment: Left thumb cellulitis with possible abscess with bacteremia secondary to group a strep. Patient does have evidence of ascending lymphangitis in the left hand and arm. Covered well with IV cefazolin. I think there is a ballotable area around the nail and medial to it. Discussed with Dr. Francisco in surgery. He will be by later today to assess the need for incision and drainage. Plan: 1. Continue IV cefazolin. 2. Await surgical opinion on incision and drainage of the left thumb. 03/11/17 16:42 Subjective: Patient is improving slightly. He states that the redness up his left arm is decreased. He also notes that his left thumb still is quite swollen and exquisitely tender. No fevers or chills. Objective: Cefazolin #2 Vital Signs Temp Pulse Resp BP Pulse Ox 37.0 C 80 16 119/70 94 03/11/17 07:19 03/11/17 07:19 03/11/17 07:19 03/11/17 07:19 03/11/17 07:19 Laboratory Results 03/11/17 04:00 03/11/17 04:00 03/10/17 03/11/17 03/12/17 05:59 05:59 05:59 Intake Total 600 Output Total 1200 Balance -600 - Physical Exam General Appearance: WD/WN, alert, no apparent distress, non-toxic Respiratory: lungs clear, normal breath sounds, No respiratory distress Cardiac/Chest: regular rate, rhythm, No tachycardia Extremities: inflammation, swelling (Left thumb predominantly), erythema (Left thumb, left hand and left arm.), No non-tender, No normal inspection Skin: normal color, warm/dry, rash Neuro/Psych: alert, normal mood/affect, oriented x 3 ICD10 Worksheet Patient Problems: Problems Problem Status Onset Cellulitis Acute
[2017-03-11 19:17] LABS: POTASSIUM 4.7 mEq/L (3.5-5.2)
[2017-03-12 04:56] LABS: % IMMATURE GRANULYOCYTES 0.5 % (0.0-1.1); ABSOLUTE IMMATURE GRANULOCYTES 0.03 10^3/uL (0.00-0.10); ADD DIFF? NO; ADD MORPH? NO; ADD SCAN? NO; ATYPICAL LYMPHOCYTE FLAG 40 (0-99); FRAGMENT RBC FLAG 0 (0-99); HEMATOCRIT 44.3 % (40.0-51.0); HEMOGLOBIN 14.9 g/dL (13.7-17.5); LEFT SHIFT FLG 10 (0-99); LIPEMIA HEMOLYSIS FLAG 80 (0-99); MEAN CELL HEMOGLOBIN 32.2 pg (27.9-34.1); MEAN CELL HEMOGLOBIN CONCENTR. 33.6 g/dL (32.4-36.7); MEAN CELL VOLUME 95.7 fL (81.5-99.8); MEAN PLATELET VOLUME 10.3 fL (8.7-11.7); PLATELET CLUMPS FLAG 10 (0-99); PLATELET COUNT 217 10^3/uL (150-400); RED BLOOD CELL COUNT 4.63 10^6/uL (4.40-6.38); RED CELL DISTRIBUTION WIDTH 14.8 % (11.5-15.2)
[2017-03-12 05:13] LABS: ANION GAP 8 mEq/L (8-16); CALCIUM 9.2 mg/dL (8.5-10.4); CARBON DIOXIDE 26 mEq/l (22-31); CHLORIDE 103 mEq/L (97-110); CREATININE 0.7 mg/dL (0.7-1.3); GLOMERULAR FILTRATION RATE > 60; GLUCOSE 94 mg/dL (70-100); POTASSIUM 4.3 mEq/L (3.5-5.2); SODIUM 137 mEq/L (134-144)
[2017-03-12] MEDS: ceFAZolin 2 GM/DEXTROSE 100 ML IV SCH ×3 (05:36→21:31)
[2017-03-12] MEDS: oxyCODONE IR 5 MG TAB PO PRN ×2 (05:42→21:28)
--- NOTE | 2017-03-12 07:52 | GOP ---
[f rep st] OPERATIVE REPORT DATE OF OPERATION: 03/11/2017 SURGEON: Gualberto Francisco MD PREOPERATIVE DIAGNOSIS: POSTOPERATIVE DIAGNOSIS: PROCEDURE PERFORMED: FINDINGS: ESTIMATED BLOOD LOSS: About 1 mL. INDICATIONS: Infection, left thumb. DESCRIPTION OF PROCEDURE: This procedure was performed at the bedside. After prepping with chlorhexidine the fluctuant area on the radial dorsal aspect of the distal segment of the thumb was carefully opened with a 15 blade and purulent material was drained out. The pocket was irrigated with saline. A dressing of Xeroform and gauze was applied. The procedure was tolerated well. /[id number]/MODL MTDD
[2017-03-12] MEDS: SENNOSIDES/DOCUSATE SODIUM TAB PO SCH ×2 (08:17→21:29)
[2017-03-12] MEDS: MULTIVITAMINS 1 EACH TAB PO SCH (08:17)
[2017-03-12] MEDS: FOLIC ACID 1 MG TAB PO SCH (08:19)
[2017-03-12] MEDS: THIAMINE HCL 100 MG TAB PO SCH (08:19)
--- NOTE | 2017-03-12 10:19 | PCMIDPN ---
Assessment/Plan: Assessment/Plan: 1. Left thumb cellulitis/abscess with ascending lymphangitis: - Currently on Ancef directive therapy regarding #1 and #2 - s/p I & D (03/11/17), appreciate Dr. Francisco's assistance in care - Labs reviewed, stable. -Continue with current therapy - care coordinated with hospitalist team 2. Group A strep bacteremia; - 2/2 to #1 -f/u blood cx from 03/11/17 pending -Continue ancef - 3. HCV Ab positive - Ordered HCV RNA and Hepatitis A Ab. - HBV surface Ab pending - If nonimmune, will need Hepatitis A and B vaccines. - will need f/u work up in the OP Med Ancef 2g q8- 03/10/17 Subjective: afebrile. feels a little better. still with pain. denies sob, abd pain or diarrhea. Objective: Vital Signs Temp Pulse Resp BP Pulse Ox 36.8 C 74 16 115/63 94 03/12/17 07:44 03/12/17 07:44 03/12/17 07:44 03/12/17 07:44 03/12/17 07:44 Laboratory Results 03/12/17 04:36 03/12/17 04:36 03/11/17 03/12/17 03/13/17 05:59 05:59 05:59 Intake Total 600 400 Output Total 1200 Balance -600 400 - Physical Exam General Appearance: alert, no apparent distress Respiratory: lungs clear Cardiac/Chest: regular rate, rhythm Extremities: No swelling (of LE) Abdomen: normal bowel sounds, non-tender, soft, No distended Skin: other (mild residual erythema on forearm, left. left thumb in dressing. i did not take down today.) ICD10 Worksheet Patient Problems: Problems Problem Status Onset Cellulitis Acute
[2017-03-12] MEDS: ACETAMINOPHEN 325 MG TAB PO PRN (14:45)
--- NOTE | 2017-03-12 15:29 | HOSPPROG ---
Hospitalist Progress Note Assessment/Plan: 31 yo homeless M presenting with pain/swelling in left thumb with streaking up his arm to his axilla # cellulitis/lymphangitis with Grp A strep bacteremia (without signs of joint involvement or tenosynovitis) s/p I&D 03/11/17 -cont Ancef per ID -ID and hand surgery consults reviewed # etoh abuse and w/d: patient continues to have e/o etoh withdrawal with tremulousness today, he feels as if the withdrawal is improving overall, will continue ciwa/mvi/thiamine/folate # Newly diagnosed Hep C -pt informed of the diagnosis. Cautioned on the use of alcohol in the setting of Hep C. Will need outpatient evaluation and workup for treatment -viral load and phenotype pending # IP status, given ongoing withdrawal and only minimal improvement in cellulitis he will require > 48 hours stay # h/o cutaneous MRSA dispo: pt will need extended treatment with ivabx and will not be a candidate for outpt infusion given his history of substance abuse Subjective: no fevers or chills. The redness is improving his left arm. Pain controlled. Objective: Vital Signs Temp Pulse Resp BP Pulse Ox 36.8 C 74 16 115/63 94 03/12/17 07:44 03/12/17 07:44 03/12/17 07:44 03/12/17 07:44 03/12/17 07:44 Laboratory Results 03/12/17 04:36 03/11/17 03/12/17 03/13/17 05:59 05:59 05:59 Intake Total 600 400 Output Total 1200 Balance -600 400 PT 15.2 SEC (12.0-15.0) H 03/09/17 11:30 INR 1.20 (0.83-1.16) H 03/09/17 11:30 - Physical Exam Skin: warm, other ( Improved lymphangitic streaking up his left arm) ICD10 Worksheet Patient Problems: Problems Problem Status Onset Cellulitis Acute
[2017-03-12 16:25] LABS: HEPATITIS Bs Ab QUANT 54.6 mIU/mL
--- NOTE | 2017-03-12 16:45 | ASMTCMCOM ---
CM Note CM Note Notes: Spoke with patient's nurse who says she talked with him in depth re: etoh and support resources. Patient was not interested in support resources and told her he most likely would continue to drink. Patient states he cannot go back to [place] because there are so many bad influences there and he has more friends here. Patient's nurse reports patient has been agitated and grouchy but is receiving Librium per [facility]. Erum has applied for Medicaid in patient's behalf. CM will follow. Date Signed: 03/12/2017 04:45 PM Electronically Signed By:Esthela Gary LCSW
--- NOTE | 2017-03-12 18:37 | SOAPPROG ---
SOAP Progress Note Assessment/Plan: Assessment:improving Plan:Continue antibiotics and soaks 03/12/17 18:35 Objective: Hand less swollen and thumb much less tender and swollen. Vital Signs Temp Pulse Resp BP Pulse Ox 36.8 C 69 18 109/65 95 03/12/17 15:27 03/12/17 15:27 03/12/17 15:27 03/12/17 15:27 03/12/17 15:27 Laboratory Results 03/12/17 04:36 03/11/17 03/12/17 03/13/17 05:59 05:59 05:59 Intake Total 409 442 1334 Output Total 1200 Balance -787 472 7836 PT 15.2 SEC (12.0-15.0) H 03/09/17 11:30 INR 1.20 (0.83-1.16) H 03/09/17 11:30 ICD10 Worksheet Patient Problems: Problems Problem Status Onset Cellulitis Acute
[2017-03-12 19:13] LABS: POTASSIUM 4.6 mEq/L (3.5-5.2)
[2017-03-13 05:00] LABS: MAGNESIUM 2.1 mg/dL (1.6-2.3); POTASSIUM 4.2 mEq/L (3.5-5.2)
[2017-03-13] MEDS: ceFAZolin 2 GM/DEXTROSE 100 ML IV SCH ×3 (05:32→21:33)
[2017-03-13] MEDS: oxyCODONE IR 5 MG TAB PO PRN (05:32)
[2017-03-13] MEDS: SENNOSIDES/DOCUSATE SODIUM TAB PO SCH ×2 (09:06→21:33)
[2017-03-13] MEDS: THIAMINE HCL 100 MG TAB PO SCH (09:06)
[2017-03-13] MEDS: MULTIVITAMINS 1 EACH TAB PO SCH (09:06)
[2017-03-13] MEDS: FOLIC ACID 1 MG TAB PO SCH (09:06)
--- NOTE | 2017-03-13 11:08 | PCMIDPN ---
Assessment/Plan: #Left thumb abscess and associated lymphangitis to the upper arm. This is my 1st exam but persistent streaking redness to the mid upper arm remains - but seems paco in nature, suggesting improvement. No associated axillary lymphadenopathy. Thumb remains very painful and swollen, but minimal swelling of rest of hand. Findings suggest general improved --continue cefazolin --encouraged patient to elevate left upper extremity # GAS bacteremia source left hand. Blood cultures from 03/11/2017 are no growth today -- plan 2 weeks of IV antibiotics from negative blood cultures, stop date 2016 # Hepatitis-C antibody positive -- viral load pending -- HIV antibody negative, patient has immunity to hepatitis A and B medications cefazolin 2 g IV Q 8, 03/10/2017, day #3 microbiology 03/11 blood cultures 2/2 NGTD 03/09 blood Cultures 2/ group a strep Subjective: patient c/o thumb pain minimally conversive Objective: Vital Signs Temp Pulse Resp BP Pulse Ox 36.9 C 73 10 L 115/70 94 03/13/17 08:00 03/13/17 08:00 03/13/17 08:00 03/13/17 08:00 03/13/17 08:00 Laboratory Results 03/12/17 04:36 03/13/17 04:20 03/12/17 03/13/17 03/14/17 05:59 05:59 05:59 Intake Total 400 1050 Balance 400 1050 - Physical Exam General Appearance: alert, no apparent distress EENT: poor dentition Respiratory: lungs clear, No accessory muscle use Cardiac/Chest: regular rate, rhythm, No systolic murmur Extremities: other ( swelling and erythema and tenderness of left thumb with erythema streaking up his arm to the mid upper arm.) Abdomen: non-tender, soft Skin: No jaundice, No rash Lymphatic: No no adenopathy ICD10 Worksheet Patient Problems: Problems Problem Status Onset Cellulitis Acute
--- NOTE | 2017-03-13 14:32 | HOSPPROG ---
Hospitalist Progress Note Assessment/Plan: 31 yo homeless M presenting with pain/swelling in left thumb with streaking up his arm to his axilla # cellulitis/lymphangitis with Grp A strep bacteremia (without signs of joint involvement or tenosynovitis) s/p I&D 03/11/17 -cont Ancef per ID through 03/25/17 -ID and hand surgery consults reviewed # etoh abuse and w/d (improving) -will change Librium to p.r.n. # Newly diagnosed Hep C -pt informed of the diagnosis. Cautioned on the use of alcohol in the setting of Hep C. Will need outpatient evaluation and workup for treatment -viral load and phenotype pending # IP status, given ongoing withdrawal and only minimal improvement in cellulitis he will require > 48 hours stay # h/o cutaneous MRSA dispo: pt will need extended treatment with ivabx and will not be a candidate for outpt infusion given his history of substance abuse Subjective: Reports some itching of his left arm. No fevers or chills. Otherwise feeling better. Objective: Vital Signs Temp Pulse Resp BP Pulse Ox 36.9 C 73 10 L 115/70 94 03/13/17 08:00 03/13/17 08:00 03/13/17 08:00 03/13/17 08:00 03/13/17 08:00 Laboratory Results 03/12/17 04:36 03/13/17 04:20 03/12/17 03/13/17 03/14/17 05:59 05:59 05:59 Intake Total 400 1050 Balance 400 1050 PT 15.2 SEC (12.0-15.0) H 03/09/17 11:30 INR 1.20 (0.83-1.16) H 03/09/17 11:30 - Physical Exam Constitutional: no apparent distress, appears nourished, not in pain Cardiovascular: regular rate and rhythym, no murmur, rub, or gallop Respiratory: no respiratory distress, no rales or rhonchi, clear to auscultation Skin: other (Small papules on left AC tracking up the distribution of his lymphangitis that seems to be improving) ICD10 Worksheet Patient Problems: Problems Problem Status Onset Cellulitis Acute
[2017-03-13] MEDS: traMADol 50 MG TAB PO PRN (16:35)
--- NOTE | 2017-03-13 16:57 | ASMTCMCOM ---
CM Note CM Note Notes: CM consulted balta Nelson RN regarding pt care. Pt is positive for blood cultures. Pt is being seen by infectious disease and will need IV antibotics until 03/25/17. Pt was in the shower when CM attempted to meet with him. Libby has applied for Medicaid for pt. CM to follow. Date Signed: 03/13/2017 04:57 PM Electronically Signed By:ALMA Dennison
[2017-03-13 18:18] LABS: POTASSIUM 4.6 mEq/L (3.5-5.2)
--- NOTE | 2017-03-13 19:03 | SOAPPROG ---
SOAP Progress Note Assessment/Plan: Assessment:improving. Unlikely to require further surgical intervention. Plan:Continue antibiotics and soaks 03/12/17 18:35 03/13/17 19:02 Objective: Thumb still erythematous and swollen distal segment but much less tender. Vital Signs Temp Pulse Resp BP Pulse Ox 36.9 C 94 12 129/74 H 92 03/13/17 16:00 03/13/17 16:00 03/13/17 16:00 03/13/17 16:00 03/13/17 16:00 Laboratory Results 03/12/17 04:36 03/13/17 17:50 03/12/17 03/13/17 03/14/17 05:59 05:59 05:59 Intake Total 400 1050 Balance 400 1050 PT 15.2 SEC (12.0-15.0) H 03/09/17 11:30 INR 1.20 (0.83-1.16) H 03/09/17 11:30 ICD10 Worksheet Patient Problems: Problems Problem Status Onset Cellulitis Acute
[2017-03-14] MEDS: ceFAZolin 2 GM/DEXTROSE 100 ML IV SCH ×3 (05:10→21:55)
[2017-03-14 05:24] LABS: MAGNESIUM 2.1 mg/dL (1.6-2.3); POTASSIUM 4.2 mEq/L (3.5-5.2)
[2017-03-14] MEDS: FOLIC ACID 1 MG TAB PO SCH (08:26)
[2017-03-14] MEDS: THIAMINE HCL 100 MG TAB PO SCH (08:26)
[2017-03-14] MEDS: MULTIVITAMINS 1 EACH TAB PO SCH (08:26)
[2017-03-14] MEDS: SENNOSIDES/DOCUSATE SODIUM TAB PO SCH ×2 (08:26→21:55)
[2017-03-14] MEDS: traMADol 50 MG TAB PO PRN (12:25)
[2017-03-14 12:35] LABS: HCV QT RNA PCR < 1 IU/mL (<15)
--- NOTE | 2017-03-14 13:02 | HOSPPROG ---
Hospitalist Progress Note Assessment/Plan: 31 yo homeless M presenting with pain/swelling in left thumb with streaking up his arm to his axilla. First encounter, chart reviewed. D/W Dr staton and CM. # cellulitis/lymphangitis with Grp A strep bacteremia (without signs of joint involvement or tenosynovitis) s/p I&D 03/11/17 -cont Ancef per ID through 03/25/17 -ID and hand surgery consults reviewed # etoh abuse -Librium to p.r.n. -resolved # Newly diagnosed Hep C -pt informed of the diagnosis. Cautioned on the use of alcohol in the setting of Hep C. Will need outpatient evaluation and workup for treatment -viral load and phenotype low # IP status, given ongoing withdrawal and only minimal improvement in cellulitis he will require > 48 hours stay # h/o cutaneous MRSA dispo: pt will need extended treatment with ivabx and will not be a candidate for outpt infusion given his history of substance abuse Subjective: Feeling fine. No issues. Pain ok. Objective: Vital Signs Temp Pulse Resp BP Pulse Ox 36.8 C 72 16 112/62 97 03/14/17 07:49 03/14/17 07:49 03/14/17 07:49 03/14/17 07:49 03/14/17 07:49 Laboratory Results 03/12/17 04:36 03/14/17 04:23 03/13/17 03/14/17 03/15/17 05:59 05:59 05:59 Intake Total 1050 Balance 1050 PT 15.2 SEC (12.0-15.0) H 03/09/17 11:30 INR 1.20 (0.83-1.16) H 03/09/17 11:30 - Physical Exam Constitutional: no apparent distress, appears nourished, not in pain Eyes: PERRL, anicteric sclera, EOMI Ears, Nose, Mouth, Throat: moist mucous membranes, hearing normal, ears appear normal Cardiovascular: regular rate and rhythym, No JVD, No edema Respiratory: no respiratory distress, no rales or rhonchi, reduced air movement Gastrointestinal: normoactive bowel sounds, No tenderness, No ascites Skin: warm, erythema, No mottled Musculoskeletal: joint tenderness, pain with ROM, generalized weakness Neurologic: AAOx3 Psychiatric: not anxious, not encephalopathic, thought process linear, poor insight ICD10 Worksheet Patient Problems: Problems Problem Status Onset Cellulitis Acute
[2017-03-14] MEDS: ACETAMINOPHEN 325 MG TAB PO PRN (14:37)
--- NOTE | 2017-03-14 18:01 | PCMIDPN ---
Assessment/Plan: Assessment/Plan: * Group A streptococcal bacteremia associated with left thumb abscess and lymphangitis: Clinically improving post incision and drainage. Lymphangitis is resolving. Repeat blood culture show clearing of bacteremia. Plan 10-14 days of antibiotics post negative blood cultures. Continue cefazolin with consideration for change to penicillin if no other pathogens isolated. Think patient will need to stay in hospital to complete antibiotic course given risk posed by outpatient antibiotic therapy with recent history of injection drug use and significant alcohol use. * Hepatitis-C antibody positive: Viral load is undetectable. Most compatible with cleared disease. Discussed with patient importance of use of clean needles and availability of needle exchange if he continues to use injection drugs. He notes that he does not intend to continue injection drug use after hospital discharge. Antibody testing shows immunity to both hepatitis A and B. 03/14/17 17:58 Subjective: Patient with persistent left thumb pain but overall feels improved. Social history including alcohol and injection drug use reviewed with patient today. Objective: Vital Signs Temp Pulse Resp BP Pulse Ox 36.9 C 79 16 115/63 94 03/14/17 16:00 03/14/17 16:00 03/14/17 16:00 03/14/17 16:00 03/14/17 16:00 Laboratory Results 03/12/17 04:36 03/14/17 04:23 03/13/17 03/14/17 03/15/17 05:59 05:59 05:59 Intake Total 1050 Balance 1050 Cefazolin # 4 Laboratory Tests 03/10/17 03/10/17 03/12/17 17:44 17:44 10:40 Hep Bs Antigen NEGATIVE Hepatitis A Ab Total POSITIVE Hep Bs Antibody Positive Hepatitis C Antibody REACTIVE H HCV RNA (PCR) IUs/ml < 1 HCV RNA PCR log IUs/ml 0.00 HIV 1&2 Antibody NEGATIVE Blood cultures 03/11/2017 no growth - Physical Exam General Appearance: alert, no apparent distress EENT: No scleral icterus, No conjunctival petechiae Cardiac/Chest: regular rate, rhythm, No systolic murmur Extremities: inflammation (Left thumb with incision present over pad with tenderness to palpation and residual erythema; no purulent drainage) Abdomen: non-tender, No distended Lymphatic: other (Faint lymphangitis present over left upper extremity) ICD10 Worksheet Patient Problems: Problems Problem Status Onset Cellulitis Acute
[2017-03-14 19:42] LABS: POTASSIUM 4.3 mEq/L (3.5-5.2)
[2017-03-15 05:36] LABS: POTASSIUM 4.1 mEq/L (3.5-5.2)
[2017-03-15] MEDS: ceFAZolin 2 GM/DEXTROSE 100 ML IV SCH ×3 (05:38→22:34)
[2017-03-15] MEDS: MULTIVITAMINS 1 EACH TAB PO SCH (09:19)
[2017-03-15] MEDS: SENNOSIDES/DOCUSATE SODIUM TAB PO SCH ×2 (09:19→22:34)
[2017-03-15] MEDS: FOLIC ACID 1 MG TAB PO SCH (09:20)
[2017-03-15] MEDS: THIAMINE HCL 100 MG TAB PO SCH (09:20)
--- NOTE | 2017-03-15 14:43 | HOSPPROG ---
Hospitalist Progress Note Assessment/Plan: 31 yo homeless M presenting with pain/swelling in left thumb with streaking up his arm to his axilla. # cellulitis/lymphangitis with Grp A strep bacteremia (without signs of joint involvement or tenosynovitis) s/p I&D 03/11/17 -cont Ancef per ID through 03/25/17 -ID and hand surgery consults reviewed # etoh abuse -Librium to p.r.n. -resolved # Newly diagnosed Hep C -pt informed of the diagnosis. Cautioned on the use of alcohol in the setting of Hep C. Will need outpatient evaluation and workup for treatment -viral load and phenotype low # IP status, given ongoing withdrawal and only minimal improvement in cellulitis he will require > 48 hours stay # h/o cutaneous MRSA dispo: pt will need extended treatment with iv abx and will not be a candidate for outpt infusion given his history of substance abuse Subjective: Feeling fine. No pain. Objective: Vital Signs Temp Pulse Resp BP Pulse Ox 36.8 C 72 16 111/71 96 03/15/17 07:54 03/15/17 07:54 03/15/17 07:54 03/15/17 07:54 03/15/17 07:54 Laboratory Results 03/12/17 04:36 03/15/17 04:26 03/14/17 03/15/17 03/16/17 05:59 05:59 05:59 Intake Total 500 Balance 500 PT 15.2 SEC (12.0-15.0) H 03/09/17 11:30 INR 1.20 (0.83-1.16) H 03/09/17 11:30 - Physical Exam Constitutional: no apparent distress, not in pain Eyes: PERRL, anicteric sclera Ears, Nose, Mouth, Throat: moist mucous membranes, hearing normal Cardiovascular: No JVD, No edema Respiratory: no respiratory distress, reduced air movement Gastrointestinal: No tenderness, No ascites Skin: warm, No mottled Musculoskeletal: full muscle strength, normal joint ROM Neurologic: AAOx3 Psychiatric: not anxious, not encephalopathic ICD10 Worksheet Patient Problems: Problems Problem Status Onset Cellulitis Acute
--- NOTE | 2017-03-15 14:44 | SOAPPROG ---
SOAP Progress Note Assessment/Plan: Assessment: Resolving Group A strep infection left thumb. Plan: Finish course of antibiotic. 03/12/17 18:35 03/13/17 19:02 03/15/17 14:41 Objective: Thumb much better. Resolving blister area where drainage was done. Vital Signs Temp Pulse Resp BP Pulse Ox 36.8 C 72 16 111/71 96 03/15/17 07:54 03/15/17 07:54 03/15/17 07:54 03/15/17 07:54 03/15/17 07:54 Laboratory Results 03/12/17 04:36 03/15/17 04:26 03/14/17 03/15/17 03/16/17 05:59 05:59 05:59 Intake Total 500 Balance 500 PT 15.2 SEC (12.0-15.0) H 03/09/17 11:30 INR 1.20 (0.83-1.16) H 03/09/17 11:30 ICD10 Worksheet Patient Problems: Problems Problem Status Onset Cellulitis Acute
--- NOTE | 2017-03-15 16:40 | ASMTCMCOM ---
CM Note CM Note Notes: Pt. will continue to remain at [facility] for the duration of IV antibiotics for safety reasons due to his verbal acknowledgment to DONATO DURANT yesterday that he had recently done IV drugs. Pt. will need homeless resources as d/c day grows near. Date Signed: 03/15/2017 04:40 PM Electronically Signed By:Josephine Luna LCSW
--- NOTE | 2017-03-15 16:42 | PCMIDPN ---
Assessment/Plan: #Left thumb abscess and associated lymphangitis to the upper arm. Lung exam much improved today with decreased swelling of the left thigh and almost resolution of lymphangitis --continue cefazolin --encouraged patient to elevate left upper extremity # GAS bacteremia source left hand. Blood cultures from 03/11/2017 are no growth today -- plan 10 days IV antibiotics from negative blood cultures, stop date 2016. Discussed need for IV antibiotics with patient today # Hepatitis-C antibody positive: Viral load negative reflecting clearance of the virus. Patient educated that he could get infected again. HIV antibody negative, patient has immunity to hepatitis A and B. patient no longer uses IV drugs medications cefazolin 2 g IV Q 8, 03/10/2017, day #5 microbiology 03/11 blood cultures 2/2 NGTD 03/09 blood Cultures 2/ group a strep Subjective: Patient feels significantly improved, wants to know when he can leave Objective: Vital Signs Temp Pulse Resp BP Pulse Ox 36.8 C 78 16 112/57 L 96 03/15/17 15:31 03/15/17 15:31 03/15/17 15:31 03/15/17 15:31 03/15/17 15:31 Laboratory Results 03/12/17 04:36 03/15/17 04:26 03/14/17 03/15/17 03/16/17 05:59 05:59 05:59 Intake Total 500 Balance 500 - Physical Exam General Appearance: alert, no apparent distress EENT: No scleral icterus, No thrush Respiratory: lungs clear, No accessory muscle use Neck: supple Cardiac/Chest: regular rate, rhythm, No systolic murmur Extremities: normal capillary refill, other (Left thumb with significant decrease edema but still some erythema at the edge of the nail bed, lymphangitis on the medial surface of his arm has almost resolved.) Neuro/Psych: alert, oriented x 3, other (Flat affect) ICD10 Worksheet Patient Problems: Problems Problem Status Onset Cellulitis Acute
[2017-03-16] MEDS: ceFAZolin 2 GM/DEXTROSE 100 ML IV SCH ×3 (05:47→21:20)
[2017-03-16 05:54] LABS: MAGNESIUM 1.9 mg/dL (1.6-2.3); POTASSIUM 3.8 mEq/L (3.5-5.2)
[2017-03-16] MEDS: THIAMINE HCL 100 MG TAB PO SCH (10:58)
[2017-03-16] MEDS: SENNOSIDES/DOCUSATE SODIUM TAB PO SCH ×2 (10:58→21:20)
[2017-03-16] MEDS: MULTIVITAMINS 1 EACH TAB PO SCH (10:59)
[2017-03-16] MEDS: FOLIC ACID 1 MG TAB PO SCH (10:59)
--- NOTE | 2017-03-16 11:54 | HOSPPROG ---
Hospitalist Progress Note Assessment/Plan: # Hepatitis-C antibody positive: Viral load negative reflecting clearance of the virus. Patient educated that he could get infected again. HIV antibody negative, patient has immunity to hepatitis A and B. patient no longer uses IV drugs medications cefazolin 2 g IV Q 8, 03/10/2017, day #5 microbiology 03/11 blood cultures 2/2 NGTD 03/09 blood Cultures 2/2 group a strep 31 yo homeless M presenting with pain/swelling in left thumb with streaking up his arm to his axilla. # Left thumb abscess and associated lymphangitis to the upper arm. --continue cefazolin --elevate left upper extremity # Grp A strep bacteremia (without signs of joint involvement or tenosynovitis) s /p I&D 03/11/17 -cont Ancef per ID through 03/21/17 -ID and hand surgery consulted # Hepatitis-C antibody positive: - Viral load negative reflecting clearance of the virus. Patient educated that he could get infected again. - HIV antibody negative, patient has immunity to hepatitis A and B. patient no longer uses IV drugs # etoh abuse -Librium to p.r.n. -resolved # IP status, given ongoing withdrawal and only minimal improvement in cellulitis he will require > 48 hours stay # h/o cutaneous MRSA dispo: pt will need extended treatment with iv abx and will not be a candidate for outpt infusion given his history of substance abuse Subjective: Feeling better today. No issues. Objective: Vital Signs Temp Pulse Resp BP Pulse Ox 36.9 C 65 20 106/57 L 96 03/16/17 07:50 03/16/17 07:50 03/16/17 07:50 03/16/17 07:50 03/16/17 07:50 Laboratory Results 03/12/17 04:36 03/16/17 05:13 03/15/17 03/16/17 03/17/17 05:59 05:59 05:59 Intake Total 500 350 Balance 500 350 PT 15.2 SEC (12.0-15.0) H 03/09/17 11:30 INR 1.20 (0.83-1.16) H 03/09/17 11:30 - Physical Exam Constitutional: no apparent distress, not in pain Eyes: PERRL, anicteric sclera Ears, Nose, Mouth, Throat: moist mucous membranes, hearing normal Cardiovascular: No JVD, No edema Respiratory: no respiratory distress, reduced air movement Gastrointestinal: No tenderness, No ascites Skin: warm, normal color Musculoskeletal: normal joint ROM, generalized weakness Neurologic: AAOx3 Psychiatric: not anxious, poor insight, poor judgement ICD10 Worksheet Patient Problems: Problems Problem Status Onset Cellulitis Acute
[2017-03-16 19:11] LABS: POTASSIUM 3.9 mEq/L (3.5-5.2)
[2017-03-17] MEDS: ceFAZolin 2 GM/DEXTROSE 100 ML IV SCH ×3 (05:21→22:14)
[2017-03-17 05:30] LABS: MAGNESIUM 1.9 mg/dL (1.6-2.3); POTASSIUM 3.8 mEq/L (3.5-5.2)
[2017-03-17] MEDS: FOLIC ACID 1 MG TAB PO SCH (10:15)
[2017-03-17] MEDS: THIAMINE HCL 100 MG TAB PO SCH (10:15)
[2017-03-17] MEDS: MULTIVITAMINS 1 EACH TAB PO SCH (10:15)
[2017-03-17] MEDS: SENNOSIDES/DOCUSATE SODIUM TAB PO SCH ×2 (10:20→22:14)
--- NOTE | 2017-03-17 11:20 | SOAPPROG ---
SOAP Progress Note Assessment/Plan: Assessment: Almost fully healed Plan: Finish course of antibiotic. 03/12/17 18:35 03/13/17 19:02 03/15/17 14:41 03/17/17 11:18 Objective: Thumb looks much better. Nearly fully healed. Vital Signs Temp Pulse Resp BP Pulse Ox 36.6 C 65 14 108/64 97 03/17/17 08:00 03/17/17 08:00 03/17/17 08:00 03/17/17 08:00 03/17/17 08:00 Microbiology 03/11/17 11:05 Blood Culture - Final Blood 03/11/17 11:05 Blood Culture - Final Blood Laboratory Results 03/12/17 04:36 03/17/17 04:35 03/16/17 03/17/17 03/18/17 05:59 05:59 05:59 Intake Total 350 500 Balance 350 500 PT 15.2 SEC (12.0-15.0) H 03/09/17 11:30 INR 1.20 (0.83-1.16) H 03/09/17 11:30 ICD10 Worksheet Patient Problems: Problems Problem Status Onset Cellulitis Acute
--- NOTE | 2017-03-17 12:31 | HOSPPROG ---
Hospitalist Progress Note Assessment/Plan: 31 yo homeless M presenting with pain/swelling in left thumb with streaking up his arm to his axilla. # Left thumb abscess and associated lymphangitis to the upper arm. --continue cefazolin --elevate left upper extremity # Grp A strep bacteremia (without signs of joint involvement or tenosynovitis) s /p I&D 03/11/17 -cont Ancef per ID through 03/21/17 -ID and hand surgery consulted # Hepatitis-C antibody positive: - Viral load negative reflecting clearance of the virus. Patient educated that he could get infected again. - HIV antibody negative, patient has immunity to hepatitis A and B. patient no longer uses IV drugs # etoh abuse -Librium to p.r.n. -resolved # IP status, given ongoing withdrawal and only minimal improvement in cellulitis he will require > 48 hours stay # h/o cutaneous MRSA dispo: pt will need extended treatment with iv abx and will not be a candidate for outpt infusion given his history of substance abuse Subjective: No issues. Objective: Vital Signs Temp Pulse Resp BP Pulse Ox 36.6 C 65 14 108/64 97 03/17/17 08:00 03/17/17 08:00 03/17/17 08:00 03/17/17 08:00 03/17/17 08:00 Microbiology 03/11/17 11:05 Blood Culture - Final Blood 03/11/17 11:05 Blood Culture - Final Blood Laboratory Results 03/12/17 04:36 03/17/17 04:35 03/16/17 03/17/17 03/18/17 05:59 05:59 05:59 Intake Total 350 500 Balance 350 500 PT 15.2 SEC (12.0-15.0) H 03/09/17 11:30 INR 1.20 (0.83-1.16) H 03/09/17 11:30 - Physical Exam Constitutional: no apparent distress, not in pain Eyes: PERRL, anicteric sclera Ears, Nose, Mouth, Throat: moist mucous membranes, hearing normal Cardiovascular: No JVD, No edema Respiratory: no respiratory distress, reduced air movement Gastrointestinal: No tenderness, No ascites Skin: warm, normal color Musculoskeletal: full muscle strength, no joint effusions Neurologic: AAOx3 Psychiatric: not anxious, not encephalopathic ICD10 Worksheet Patient Problems: Problems Problem Status Onset Cellulitis Acute
[2017-03-18] MEDS: ceFAZolin 2 GM/DEXTROSE 100 ML IV SCH ×3 (05:41→21:56)
[2017-03-18] MEDS: THIAMINE HCL 100 MG TAB PO SCH (07:48)
[2017-03-18] MEDS: MULTIVITAMINS 1 EACH TAB PO SCH (07:48)
[2017-03-18] MEDS: SENNOSIDES/DOCUSATE SODIUM TAB PO SCH ×2 (07:49→21:56)
[2017-03-18] MEDS: FOLIC ACID 1 MG TAB PO SCH (07:49)
[2017-03-18] MEDS: ACETAMINOPHEN 325 MG TAB PO PRN (07:49)
--- NOTE | 2017-03-18 11:55 | ASMTCMCOM ---
CM Note CM Note Notes: Discussed case with patient's primary RN. Patient threatened to leave AMA this morning, currently not being cooperative. Plan remains that patient will stay in house and receive IV antibiotics through 03/21. Per ARM note on 03/11, Medicaid application submitted by [employer]- still pending. Case Management will continue to follow for any discharge needs that arise. Date Signed: 03/18/2017 11:55 AM Electronically Signed By:Naima Nevarez RN
--- NOTE | 2017-03-18 12:51 | HOSPPROG ---
Hospitalist Progress Note Assessment/Plan: Assessment: 31 yo M p/w left thumb abscess Plan: # Left thumb abscess. s/p I&D on 03/11, no signs of teno/joint involvement, appreciate hand surg consult -elevate left upper extremity # Group A strep bacteremia. s/p source control, repeat BCx 03/11 no growth -cont Ancef per ID through 03/21/17 -appreciate ID consult -given his history of IVDU and homelessness, unable to safely arrange outpatient IV abx, so he must remain hospitalized to receive full duration of appropriate IV abx care -IF patient becomes hostile or decides to leave AMA, THEN please remove his IV line and contact the covering hospitalist to provide him w/ a script for PO Abx for the remaining 48-72hrs of care # Hepatitis-C antibody positive. Viral load negative reflecting clearance of the virus. Patient educated that he could get infected again. -HIV antibody negative, patient has immunity to hepatitis A and B, patient no longer uses IV drugs # Etoh abuse. Patient declined full eval for withdraw today, will cont librium PRN Diet. Regular Ppx. High risk, lovenox 40 Code. Full Dispo. ADD 03/21, s/p last IV Abx dose. Subjective: patient hostile this AM to RN, calmed Objective: Vital Signs Temp Pulse Resp BP Pulse Ox 36.7 C 67 14 113/60 94 03/18/17 08:00 03/18/17 08:00 03/18/17 08:00 03/18/17 08:00 03/18/17 08:00 Laboratory Results 03/12/17 04:36 03/17/17 04:35 03/17/17 03/18/17 03/19/17 05:59 05:59 05:59 Intake Total 500 Balance 500 PT 15.2 SEC (12.0-15.0) H 03/09/17 11:30 INR 1.20 (0.83-1.16) H 03/09/17 11:30 - Physical Exam Constitutional: no apparent distress, appears nourished, not in pain Cardiovascular: regular rate and rhythym, no murmur, rub, or gallop Respiratory: no respiratory distress, no rales or rhonchi, clear to auscultation Gastrointestinal: normoactive bowel sounds, soft, non-tender abdomen, no palpable masses Psychiatric: interacting appropriately, not anxious, flat affect, other ( withdrawn patient), No agitated ICD10 Worksheet Patient Problems: Problems Problem Status Onset Cellulitis Acute
[2017-03-19] MEDS: ceFAZolin 2 GM/DEXTROSE 100 ML IV SCH ×3 (06:03→22:00)
--- NOTE | 2017-03-19 09:12 | HOSPPROG ---
Hospitalist Progress Note Assessment/Plan: Assessment: 31 yo M p/w left thumb abscess, grpA strep bacteremia Plan: Left thumb abscess. s/p I&D on 03/11, no signs of teno/joint involvement, appreciate hand surg consult elevate left upper extremity Group A strep bacteremia. s/p source control, repeat BCx 03/11 no growth cont Ancef per ID through 03/21/17 appreciate ID consult given his history of IVDU and homelessness, unable to safely arrange outpatient IV abx, remain hospitalized to receive full duration of appropriate IV abx Hepatitis-C antibody positive. Viral load negative reflecting clearance of the virus. Patient educated that he could get infected again. HIV antibody negative, patient has immunity to hepatitis A and B, patient no longer uses IV drugs Etoh abuse. Patient declined full eval for withdraw today, will cont librium PRN Diet. Regular Ppx. High risk, lovenox 40 Code. Full Dispo. ADD 03/21, s/p last IV Abx dose. Subjective: afebrile. case d/w dr vasquez Objective: Vital Signs Temp Pulse Resp BP Pulse Ox 36.9 C 64 18 113/68 97 03/19/17 08:00 03/19/17 08:00 03/19/17 08:00 03/19/17 08:00 03/19/17 08:00 Laboratory Results 03/12/17 04:36 03/17/17 04:35 03/18/17 03/19/17 03/20/17 05:59 05:59 05:59 Intake Total 1050 Balance 1050 PT 15.2 SEC (12.0-15.0) H 03/09/17 11:30 INR 1.20 (0.83-1.16) H 03/09/17 11:30 - Physical Exam Constitutional: no apparent distress, other (flat affect) Eyes: PERRL, anicteric sclera Ears, Nose, Mouth, Throat: moist mucous membranes, hearing normal Cardiovascular: regular rate and rhythym, no murmur, rub, or gallop Respiratory: no respiratory distress, no rales or rhonchi Gastrointestinal: normoactive bowel sounds, soft, non-tender abdomen Genitourinary: no bladder fullness, No wilcox in urethra Skin: warm, normal color Musculoskeletal: full muscle strength, other (L thumb edematous w/out fluctuance. better, per report) Neurologic: AAOx3, sensation intact bilaterally Psychiatric: interacting appropriately ICD10 Worksheet Patient Problems: Problems Problem Status Onset Cellulitis Acute
[2017-03-19] MEDS: FOLIC ACID 1 MG TAB PO SCH (09:13)
[2017-03-19] MEDS: MULTIVITAMINS 1 EACH TAB PO SCH (09:13)
[2017-03-19] MEDS: SENNOSIDES/DOCUSATE SODIUM TAB PO SCH ×2 (09:13→22:02)
[2017-03-19] MEDS: ENOXAPARIN 40 MG/0.4 ML SYR SC SCH (09:13)
[2017-03-19] MEDS: THIAMINE HCL 100 MG TAB PO SCH (09:13)
--- NOTE | 2017-03-19 10:01 | PCMIDPN ---
Assessment/Plan: Assessment/Plan: 1. Left thumb cellulitis/abscess with ascending lymphangitis: - Currently on Ancef directive therapy regarding #1 and #2 - s/p I & D (03/11/17), appreciate Dr. Francisco's assistance in care - Labs reviewed, stable. -Continue with current therapy - care coordinated with hospitalist team 2. Group A strep bacteremia; - 2/2 to #1 -f/u blood cx from 03/11/17 ngtd -Continue ancef - 3. History of HCV - further work up revealed he has cleared infection - pt immune to Hepatitis A and B. -HIV negative - no further work up Med Ancef 2g q8- 03/10/17---#9 from negative cultures. Subjective: afebrile. feels better overall. resolution of redness up left forearm. less pain overall involving left thumb. denies sob, abd pain or diarrhea. Objective: Vital Signs Temp Pulse Resp BP Pulse Ox 36.9 C 64 18 113/68 97 03/19/17 08:00 03/19/17 08:00 03/19/17 08:00 03/19/17 08:00 03/19/17 08:00 Laboratory Results 03/12/17 04:36 03/17/17 04:35 03/18/17 03/19/17 03/20/17 05:59 05:59 05:59 Intake Total 1050 Balance 1050 - Physical Exam General Appearance: alert, no apparent distress Respiratory: lungs clear Cardiac/Chest: regular rate, rhythm Extremities: swelling (less swelling involving thumb) Abdomen: normal bowel sounds, non-tender, soft, No distended Skin: other (left thumb: mild macerated area. open superficial wound where I & D done. no pus can be expressed. some tenderness when palpating near incision site. ), No erythema ICD10 Worksheet Patient Problems: Problems Problem Status Onset Cellulitis Acute
[2017-03-20] MEDS: ceFAZolin 2 GM/DEXTROSE 100 ML IV SCH ×3 (05:37→21:47)
--- NOTE | 2017-03-20 08:38 | HOSPPROG ---
Hospitalist Progress Note Assessment/Plan: DIAGNOSES: Left thumb abscess. s/p I&D on 03/11, no signs of teno/joint involvement, appreciate hand surg consult - allelevate left upper extremity Group A strep bacteremia. s/p source control, repeat BCx 03/11 no growth -cont Ancef per ID through 03/21/17 -appreciate ID consult -given his history of IVDU and homelessness, unable to safely arrange outpatient IV abx, remain hospitalized to receive full duration of appropriate IV abx; Anticipate discharge March 21 after completing antibiotic therapy Hepatitis-C antibody positive. Viral load negative reflecting clearance of the virus. Patient educated that he could get infected again. HIV antibody negative, patient has immunity to hepatitis A and B, patient no longer uses IV drugs Etoh abuse. Patient declined full eval for withdraw today, will cont librium PRN SUBJECTIVE: states thumb feels better no sob no fever sxs eating ok wants to go home as soon as feasable OBJECTIVE Vitals reviewed: stable without fever Exam: alert oriented skin warm dry color ok resps not labored lungs clear BSs heart regular abd soft nondistended nontender, bowel sounds present limbs warm, no edema iv site ok Objective: Vital Signs Temp Pulse Resp BP Pulse Ox 36.8 C 59 L 16 98/45 L 93 03/20/17 08:00 03/20/17 08:00 03/20/17 08:00 03/20/17 08:00 03/20/17 08:00 Laboratory Results 03/12/17 04:36 03/17/17 04:35 03/19/17 03/20/17 03/21/17 06:59 06:59 06:59 Intake Total 1050 650 Balance 1050 650 PT 15.2 SEC (12.0-15.0) H 03/09/17 11:30 INR 1.20 (0.83-1.16) H 03/09/17 11:30 ICD10 Worksheet Patient Problems: Problems Problem Status Onset Cellulitis Acute
[2017-03-20] MEDS: THIAMINE HCL 100 MG TAB PO SCH (08:49)
[2017-03-20] MEDS: MULTIVITAMINS 1 EACH TAB PO SCH (08:49)
[2017-03-20] MEDS: ENOXAPARIN 40 MG/0.4 ML SYR SC SCH (08:50)
[2017-03-20] MEDS: FOLIC ACID 1 MG TAB PO SCH (08:50)
[2017-03-20] MEDS: SENNOSIDES/DOCUSATE SODIUM TAB PO SCH ×2 (08:51→21:47)
[2017-03-20 14:33] VITALS: TEMP 98.2
[2017-03-20 23:22] VITALS: BP 102/57
[2017-03-21] MEDS: ACETAMINOPHEN 325 MG TAB PO PRN (02:32)
[2017-03-21] MEDS: ceFAZolin 2 GM/DEXTROSE 100 ML IV SCH ×2 (06:13→15:17)
[2017-03-21 08:50] VITALS: PULSE 62; RESP 16; O2SAT 93
--- NOTE | 2017-03-21 09:55 | HOSPPROG ---
Hospitalist Progress Note Assessment/Plan: * left thumb cellulitis Status post I and D on March 11 No joint involvement Currently on Ancef Appreciate Dr. Francisco and the Infectious Disease team * group a strep bacteremia No growth since March 11 blood cultures Continue Ancef * history of HCV Patient has cleared this infection and is immune to hepatitis a and B HIV is negative * alcohol abuse Librium p.r.n. * homelessness May be able to live with his brother. Reviewed his case with Dr. Rome. No antibiotics are recommended at discharge Subjective: Giovani has no complaints of pain. Objective: Vital Signs Temp Pulse Resp BP Pulse Ox 36.8 C 62 16 102/57 L 93 03/21/17 08:00 03/21/17 08:00 03/21/17 08:00 03/20/17 23:21 03/21/17 08:00 Laboratory Results 03/12/17 04:36 03/17/17 04:35 03/20/17 03/21/17 03/22/17 05:59 05:59 05:59 Intake Total 650 Balance 650 PT 15.2 SEC (12.0-15.0) H 03/09/17 11:30 INR 1.20 (0.83-1.16) H 03/09/17 11:30 - Physical Exam Constitutional: no apparent distress, appears nourished, not in pain Eyes: PERRL Ears, Nose, Mouth, Throat: hearing normal Cardiovascular: regular rate and rhythym Respiratory: no respiratory distress Gastrointestinal: normoactive bowel sounds Skin: warm, other (Left thumb with minimal redness, has no significant pain with gentle palpation to the thumb area) Neurologic: AAOx3 Psychiatric: interacting appropriately ICD10 Worksheet Patient Problems: Problems Problem Status Onset Cellulitis Acute
[2017-03-21] MEDS: SENNOSIDES/DOCUSATE SODIUM TAB PO SCH (10:36)
[2017-03-21] MEDS: ENOXAPARIN 40 MG/0.4 ML SYR SC SCH (10:36)
[2017-03-21] MEDS: MULTIVITAMINS 1 EACH TAB PO SCH (10:36)
[2017-03-21] MEDS: THIAMINE HCL 100 MG TAB PO SCH (10:36)
[2017-03-21] MEDS: FOLIC ACID 1 MG TAB PO SCH (10:36)
--- NOTE | 2017-03-21 17:45 | ASMTCMCOM ---
CM Note CM Note Notes: Today Pt. ready for d/c. Pt. homeless and SWer met w/ him in room to discuss his wishes/options. Pt. hopes that he can stay with his brother, but has the [facility] half-way list should he need a place to go. Pt. did not need d/c medications, so did not need to MAP any. Pt.'s [place] [employer] insurance is not active, so [employer] did Medicaid evaluation and Pt. is now Medicaid pending. Pt. [facility] and Viktor made appt. for Saturday, 03/25 arrival at 10:30am. Pt. will see Samira Marie NP in the green pod. Pt. d/c'ed independently today to the street. Date Signed: 03/21/2017 05:44 PM Electronically Signed By:Josephine Luna LCSW
--- NOTE | 2017-03-21 17:46 | ASDISCHSUM ---
Discharge Information Plan Status:Homeless/Half-Way Medically Cleared to Leave: Discharge Date:03/21/2017 02:55 PM CM D/C Disposition:Home, Routine, Self-Care ADT D/C Disposition:Home, Routine, Self-Care Projected Discharge Date:03/25/2017 12:00 AM Transportation at D/C:Bus Ticket Discharge Delay Reason: Follow-Up Date:03/25/2017 12:00 AM Discharge Slot: Final Diagnosis: Placement Information Patient Contact Information Contact Name:MI Relationship:Mother Address: Work Phone: City: [facility] Phone: State/Zip Code: Email: Financial Information Financial Class:Self-Pay Primary Plan Desc:SELF PAY Primary Plan Number: Secondary Plan Desc: Secondary Plan Number: Assessment Information [facility] CM Progress Note CM Note CM Note Notes: Pt was admitted with L thumb cellulitis. Seen by DONATO vasquez changed to Kimberley, cultures pending. Pt is homeless and from [place]. Receives health care through [facility] in [facility] of MRSA, etoh abuse and withdrawal w/seizures. Currently on [facility] protocol. CM will follow for any d/c needs. Date Signed: 03/10/2017 02:42 PM Electronically Signed By:GOMEZ Howard [facility] CM Progress Note CM Note CM Note Notes: Spoke with patient's nurse who says she talked with him in depth re: etoh and support resources. Patient was not interested in support resources and told her he most likely would continue to drink. Patient states he cannot go back to [place] because there are so many bad influences there and he has more friends here. Patient's nurse reports patient has been agitated and grouchy but is receiving Librium per ELVIAWA. Erum has applied for Medicaid in patient's behalf. CM will follow. Date Signed: 03/12/2017 04:45 PM Electronically Signed By:Esthela Gary LCSW [facility] CM Progress Note CM Note CM Note Notes: CM consulted balta Nelson RN regarding pt care. Pt is positive for blood cultures. Pt is being seen by infectious disease and will need IV antibotics until 03/25/17. Pt was in the shower when CM attempted to meet with him. Libby has applied for Medicaid for pt. CM to follow. Date Signed: 03/13/2017 04:57 PM Electronically Signed By:ALMA Dennison [facility] CM Progress Note CM Note CM Note Notes: Pt. will continue to remain at [facility] for the duration of IV antibiotics for safety reasons due to his verbal acknowledgment to DONATO DURANT yesterday that he had recently done IV drugs. Pt. will need homeless resources as d/c day grows near. Date Signed: 03/15/2017 04:40 PM Electronically Signed By:Josephine Luna LCSW [facility] CM Progress Note CM Note CM Note Notes: Discussed case with patient's primary RN. Patient threatened to leave AMA this morning, currently not being cooperative. Plan remains that patient will stay in house and receive IV antibiotics through 03/21. Per ARM note on 03/11, Medicaid application submitted by [employer]- still pending. Case Management will continue to follow for any discharge needs that arise. Date Signed: 03/18/2017 11:55 AM Electronically Signed By:Naima Nevarez RN [facility] CM Progress Note CM Note CM Note Notes: Today Pt. ready for d/c. Pt. homeless and Viktor met w/ him in room to discuss his wishes/options. Pt. hopes that he can stay with his brother, but has the [facility] list should he need a place to go. Pt. did not need d/c medications, so did not need to MAP any. Pt.'s [place] [employer] insurance is not active, so [employer] did Medicaid evaluation and Pt. is now Medicaid pending. Pt. [facility] and Viktor made appt. for Saturday, 03/25 arrival at 10:30am. Pt. will see Samira Marie NP in the green pod. Pt. d/c'ed independently today to the street. Date Signed: 03/21/2017 05:44 PM Electronically Signed By:Josephine Luna LCSW Intervention Information
--- NOTE | 2017-03-21 17:46 | GDS ---
[f rep st] DISCHARGE SUMMARY DISCHARGE DIAGNOSES: 1. Left thumb cellulitis, status post I and D. 2. Group A strep bacteremia. 3. History of hepatitis C virus. 4. Alcohol use and abuse. 5. Homelessness. CONSULTATIONS: 1. Dr. Gualberto Francisco. 2. Dr. Miley Brown. BRIEF HISTORY: The patient is a 31-year-old, homeless male, who has a significant history of alcohol ism and previous injection drug usage with meth and heroin. He was unsure how he hurt his thumb but did have a puncture wound there. It was having purulent drainage prior to his admission. He was sta rted on vancomycin. He had blood cultures that were drawn that grew out strep A in all 4 bottles. H is next set showed clearance. He was treated with Ancef. Today, he will be discharged home. He zainab l not require any further antibiotics. HOSPITAL COURSE: 1. Left thumb cellulitis. Much improved after getting I and D. He has no joint involvement. 2. Group A strep bacteremia. His blood cultures on March 11 showed no growth. 3. History of hepatitis C virus. He has cleared this infection, is immune to hepatitis A and B, HIV is negative. 4. Alcohol use. He did not require Librium. 5. Homelessness. He says he has a brother with whom he may be able to live. CONDITION AT DISCHARGE: Stable. Blood pressure is 102/57, O2 saturation on room air 92%, respirator y rate is 16, pulse is 62, temperature is 36.8 Celsius. MEDICATIONS AT DISCHARGE: Please see the EMR. DISCHARGE INSTRUCTIONS: 1. To keep his left thumb warm and dry and clean. 2. To abstain from any IV drug use and all alcohol. Greater than 30 minutes spent discharging and coordinating care. /[id number]/MODL
--- NOTE | 2017-03-21 18:46 | PCMIDPN ---
Assessment/Plan: Assessment/Plan: * Group A streptococcal bacteremia associated with left thumb abscess and lymphangitis: Thumb exam shows resolution of prior abscess. Now has completed 10 days of cefazolin post clearance of blood cultures. Will discontinue cefazolin with anticipated discharge later today. 03/21/17 18:44 Subjective: Patient without specific complaints. Left thumb feels better. Objective: Vital Signs Temp Pulse Resp BP Pulse Ox 36.8 C 62 16 102/57 L 93 03/21/17 08:00 03/21/17 08:00 03/21/17 08:00 03/20/17 23:21 03/21/17 08:00 Laboratory Results 03/12/17 04:36 03/17/17 04:35 03/20/17 03/21/17 03/22/17 05:59 05:59 05:59 Intake Total 650 Balance 650 Cefazolin # 10 (post negative blood cultures) - Physical Exam General Appearance: alert, no apparent distress Extremities: other (Left thumb without significant erythema; minimal residual edema; no fluctuance or drainage) ICD10 Worksheet Patient Problems: Problems Problem Status Onset Cellulitis Acute
== END 2017-03-21 14:55 | disposition home or self-care (01) | DRG 603 ==
LOC: EDUNIT# → F3E 12:43 → OBSVTOIN 03-10 12:08
PROVIDERS: ADMIT Internal Medicine; ATTEND Internal Medicine
PROC: 0H9GXZX Drainage of Left Hand Skin, External Approach, Diagnostic (ICD-10-PCS; principal; 2017-03-11)
DX: L03.012 Cellulitis of left finger (principal); L03.124 Acute lymphangitis of left upper limb; L02.512 Cutaneous abscess of left hand; R78.81 Bacteremia; B95.5 Unspecified streptococcus as the cause of diseases classified elsewhere; F10.239 Alcohol dependence with withdrawal, unspecified; E87.6 Hypokalemia; B19.20 Unspecified viral hepatitis C without hepatic coma; I10 Essential (primary) hypertension; Z59.0 Homelessness; Z86.14 Personal history of Methicillin resistant Staphylococcus aureus infection
CPT/HCPCS: 86708-90; 86709-90; 96365; G0378; G0472; J0690; J1650; J1885; J2060; J3370; J3475

== ENCOUNTER 2017-04-14 23:20 | Emergency (ER) | payer MEDICAID ==
[2017-04-14 23:32] VITALS: TEMP 97.7
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
[2017-04-15] MEDS ORDERED: CHLORDIAZEPOXIDE 25MG PREPK#6 BTL TAKEHOME ONE (00:33)
[2017-04-15 00:50] VITALS: BP 118/70; PULSE 76; RESP 12; O2SAT 96
== END 2017-04-15 00:43 | disposition home or self-care (01) ==
LOC: EDUNIT#
DX: F10.129 Alcohol abuse with intoxication, unspecified (principal); F17.200 Nicotine dependence, unspecified, uncomplicated; I10 Essential (primary) hypertension

== ENCOUNTER 2017-08-23 03:26 | Emergency (ER) | payer MEDICAID ==
[2017-08-23 03:31] VITALS: BP 117/62; PULSE 77; RESP 18; TEMP 97.9; O2SAT 96
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
== END 2017-08-23 03:51 | disposition still patient (30) ==
LOC: EDUNIT#
DX: S61.210A Laceration without foreign body of right index finger without damage to nail, initial encounter (principal); F10.921 Alcohol use, unspecified with intoxication delirium; I10 Essential (primary) hypertension; F17.200 Nicotine dependence, unspecified, uncomplicated; W22.8XXA Striking against or struck by other objects, initial encounter; Y92.89 Other specified places as the place of occurrence of the external cause; Y93.39 Activity, other involving climbing, rappelling and jumping off

== ENCOUNTER 2018-04-23 02:45 | Emergency (ER) | payer MEDICAID ==
[2018-04-23] MEDS ORDERED: NS 1,000 ML IV ONE (02:48)
--- NOTE | 2018-04-23 02:51 | EDPHY ---
H & P Time Seen by Provider: 04/23/18 02:49 HPI/ROS: HPI CHIEF COMPLAINT: Polysubstance abuse, found on sidewalk in front of a theater. HISTORY OF PRESENT ILLNESS: Patient 32-year-old male, history of alcoholism, homelessness, presents emergency room intoxicated with alcohol. Patient was found in front of a theater. Minimally responsive. Atraumatic exam. Past Medical History: History of alcoholism. History of homelessness. History polysubstance abuse. Past Surgical History: No recent surgery however midline abdominal incision. Social History: Homeless. Polysubstance abuse. Family History: Noncontributory Review old records. Patient has a history of hepatitis-C, polysubstance abuse, homelessness, alcoholism. ROS REVIEW OF SYSTEMS: 10 Systems were reviewed and negative with the exception of the elements mentioned in the history of present illness. Exam Constitutional intoxicated, smells of alcohol, lethargic triage nursing summary reviewed, vital signs reviewed, awake/alert. Eyes normal conjunctivae and sclera, EOMI, PERRLA. HENT normal inspection, atraumatic, moist mucus membranes, no epistaxis, neck supple/ no meningismus, no raccoon eyes. Respiratory clear to auscultation bilaterally, normal breath sounds, no respiratory distress, no wheezing. Cardiovascular rate normal, regular rhythm, no murmur, no edema, distal pulses normal. Gastrointestinal soft, non-tender, no rebound, no guarding, normal bowel sounds, no distension, no pulsatile mass. Genitourinary no CVA tenderness. Musculoskeletal no midline vertebral tenderness, full range of motion, no calf swelling, no tenderness of extremities, no meningismus, good pulses, neurovascularly intact. Skin include oral over his face. pink, warm, & dry, no rash, skin atraumatic. Neurologic awake, alert and oriented x 3, AAOx3, moves all 4 extremities equally, motor intact, sensory intact, CN II-XII intact, normal cerebellar, normal vision, normal speech. Psychiatric normal mood/affect. Heme/Lymph/Immune no lymphadenopathy. Differential Diagnosis: Includes but is not limited to in a particular order acute alcohol intoxication, drug intoxication, polysubstance abuse, electrolyte disturbance Medical Decision Making: Plan for this patient IV establishment with fluid bolus, blood work, serum alcohol level, equipment monitor phototypesetting, CT scan head without contrast CT scan cervical spine without contrast as he was found down. Re-evaluation: Reason for CT scan head and neck rule out intracranial bleed or cervical spine injury in the setting of patient found on ground, and intoxicated. CT scan head without contrast and CT cervical spine without contrast for trauma being found down negative for acute traumatic injury. Serum alcohol level 346 per 0645: Patient up ambulatory. Stable gait. Clinically sober. Safe for discharge. Source: Patient, EMS - Personal History Tetanus Vaccine Date: 2007 - Medical/Surgical History Hx Asthma: No Hx Chronic Respiratory Disease: No Hx Diabetes: No Hx Cardiac Disease: No Hx Renal Disease: No Hx Cirrhosis: No Hx Alcoholism: Yes Other PMH: withdrawal seizures, ETOH, abd surgery for ulcerative colitis, HTN. - Social History Smoking Status: Light smoker Constitutional: Initial Vital Signs Temperature (C) 36.1 C 04/23/18 02:49 Heart Rate 65 04/23/18 02:49 Respiratory Rate 14 04/23/18 02:49 Blood Pressure 110/59 L 04/23/18 02:49 O2 Sat (%) 95 04/23/18 02:49 O2 Delivery Mode Room Air Allergies/Adverse Reactions: No Known Allergies Allergy (Unverified 04/23/18 02:49) Home Medications: Medication Instructions Recorded Acetaminophen [Tylenol 325mg (*)] 650 mg PO Q4HRS PRN tab 03/21/17 Multivitamins [Multivitamin (*)] 1 each PO DAILY tab 03/21/17 Medical Decision Making - Data Points Laboratory Results: Laboratory Results 04/23/18 02:40 04/23/18 02:40 04/23/18 04/23/18 02:40 02:40 WBC 4.33 10^3/uL 10^3/uL (3.80-9.50) RBC 4.09 10^6/uL L 10^6/uL (4.40-6.38) Hgb 13.5 g/dL L g/dL (13.7-17.5) Hct 40.4 % % (40.0-51.0) MCV 98.8 fL fL (81.5-99.8) MCH 33.0 pg pg (27.9-34.1) MCHC 33.4 g/dL g/dL (32.4-36.7) RDW 14.5 % % (11.5-15.2) Plt Count 237 10^3/uL 10^3/uL (150-400) MPV 9.2 fL fL (8.7-11.7) Neut % (Auto) 47.3 % % (39.3-74.2) Lymph % (Auto) 37.9 % % (15.0-45.0) [place] % (Auto) 10.2 % % (4.5-13.0) Eos % (Auto) 2.3 % % (0.6-7.6) Baso % (Auto) 2.1 % H % (0.3-1.7) Nucleat RBC Rel Count 0.0 % % (0.0-0.2) Absolute Neuts (auto) 2.05 10^3/uL 10^3/uL (1.70-6.50) Absolute Lymphs (auto) 1.64 10^3/uL 10^3/uL (1.00-3.00) Absolute Monos (auto) 0.44 10^3/uL 10^3/uL (0.30-0.80) Absolute Eos (auto) 0.10 10^3/uL 10^3/uL (0.03-0.40) Absolute Basos (auto) 0.09 10^3/uL 10^3/uL (0.02-0.10) Absolute Nucleated RBC 0.00 10^3/uL 10^3/uL (0-0.01) Immature Gran % 0.2 % % (0.0-1.1) Immature Gran # 0.01 10^3/uL 10^3/uL (0.00-0.10) Sodium 145 mEq/L mEq/L (135-145) Potassium 3.9 mEq/L mEq/L (3.3-5.0) Chloride 111 mEq/L H mEq/L (97-110) Carbon Dioxide 26 mEq/l mEq/l (22-31) Anion Gap 8 mEq/L mEq/L (6-14) BUN 9 mg/dL mg/dL (7-23) Creatinine 0.5 mg/dL L mg/dL (0.7-1.3) Estimated GFR > 60 Glucose 119 mg/dL H mg/dL (70-100) Calcium 8.5 mg/dL mg/dL (8.5-10.4) Ethyl Alcohol 346 mg/dL H mg/dL (0-10) Medications Given: Discontinued Medications Sodium Chloride (Ns) 1,000 mls @ 0 mls/hr IV ONCE ONE PRN Reason: Wide Open Stop: 04/23/18 02:49 Last Admin: 04/23/18 03:09 Dose: 1,000 mls Departure - Departure Disposition: Home, Routine, Self-Care Clinical Impression: Alcohol intoxication Qualifiers: Complication of substance-induced condition: uncomplicated Qualified Code(s): F10.920 - Alcohol use, unspecified with intoxication, uncomplicated Condition: Fair Instructions: Alcohol Intoxication (ED), Abuse of Alcohol (ED) Referrals: NONE *PRIMARY CARE P,. [Primary Care Provider] - As per Instructions
[2018-04-23 02:59] LABS: PLATELET COUNT 237 10^3/uL (150-400)
[2018-04-23 06:49] VITALS: BP 116/73
== END 2018-04-23 06:47 | disposition home or self-care (01) ==
LOC: EDUNIT#
DX: F10.220 Alcohol dependence with intoxication, uncomplicated (principal); F17.200 Nicotine dependence, unspecified, uncomplicated; Z59.0 Homelessness; Y90.8 Blood alcohol level of 240 mg/100 ml or more
CPT/HCPCS: G0480

== ENCOUNTER 2018-04-24 16:36 | Emergency (ER) | payer MEDICAID ==
[2018-04-24] MEDS ORDERED: CHLORDIAZEPOXIDE 25MG PREPK#6 BTL TAKEHOME ONE ×2 (16:48→20:17)
--- NOTE | 2018-04-24 16:48 | EDPHY ---
H & P Stated Complaint: ETOH Time Seen by Provider: 04/24/18 16:43 HPI/ROS: CHIEF COMPLAINT: Intoxication HISTORY OF PRESENT ILLNESS: Patient is a 32-year-old homeless man who was found sitting in the grocery store drinking a bottle of Listerine. When they tried to kick him out he was too intoxicated to ambulate. EMS was called and they brought him here. He was seen here yesterday for intoxication as well. No signs or complaints of injury or pain. Stable vital signs. REVIEW OF SYSTEMS: Unable to obtain secondary to condition Physical Exam General Appearance: WD/WN, no apparent distress, obtunded (But arousable with painful stimulation) EENT: PERRL/EOMI, normal ENT inspection, TMs normal, pharynx normal Neck: non-tender, full range of motion, supple, normal inspection Respiratory: chest non-tender, lungs clear, normal breath sounds Cardiac/Chest: normal peripheral pulses, regular rate, rhythm, P Peripheral Pulses: 2+: carotid (R), carotid (L), femoral (R), femoral (L), dorsalis-pedis (R), dorsalis-pedis (L) Abdomen: normal bowel sounds, non-tender, soft Extremities: normal range of motion, non-tender, normal inspection, normal capillary refill Neurological: calm, unit aide tech II-XII NML as tested. No: alert (Somnolent) Appearance: appropriate appearance, appropriate insight, neat, denies illness Behavior/Eye Contact/Speech: cooperative, decreased rate of speech Thoughts/Hallucinations: normal thought pattern, no apparent hallucination Skin: normal color, warm/dry Source: Patient, EMS Exam Limitations: Intoxication - Personal History Current Tetanus Diphtheria and Acellular Pertussis (TDAP): Yes Tetanus Vaccine Date: 2007 - Medical/Surgical History Hx Asthma: No Hx Chronic Respiratory Disease: No Hx Diabetes: No Hx Cardiac Disease: No Hx Renal Disease: No Hx Cirrhosis: No Hx Alcoholism: Yes Other PMH: ETOH - Family History Significant Family History: No pertinent family hx - Social History Smoking Status: Light smoker Alcohol Use: Heavy Constitutional: Initial Vital Signs Temperature (C) 36.6 C 04/24/18 16:41 Heart Rate 86 04/24/18 16:41 Respiratory Rate 16 04/24/18 16:41 Blood Pressure 121/69 H 04/24/18 16:41 O2 Sat (%) 94 04/24/18 16:41 O2 Delivery Mode Room Air Allergies/Adverse Reactions: No Known Allergies Allergy (Unverified 04/23/18 02:49) Home Medications: Medication Instructions Recorded Acetaminophen [Tylenol 325mg (*)] 650 mg PO Q4HRS PRN tab 03/21/17 Multivitamins [Multivitamin (*)] 1 each PO DAILY tab 03/21/17 Medical Decision Making ED Course/Re-evaluation: 8:15 p.m. the patient is ambulating without difficulty. We will discharge him to the [facility]. Differential Diagnosis: Partial list of the Differential diagnosis considered include but were not limited to; intoxication, and although unlikely based on the history and physical exam, I also considered head injury, infection. - Data Points Medications Given: Discontinued Medications Chlordiazepoxide (Librium 25 Mg Prepack#6) 1 btl TAKEHOME EDNOW ONE Stop: 04/24/18 16:49 Last Admin: 04/24/18 20:18 Dose: 1 btl Departure - Departure Disposition: Home, Routine, Self-Care Clinical Impression: Alcoholic intoxication Qualifiers: Complication of substance-induced condition: uncomplicated Qualified Code(s): F10.920 - Alcohol use, unspecified with intoxication, uncomplicated Condition: Fair Instructions: Chlordiazepoxide (By mouth), Abuse of Alcohol (ED) Referrals: Patient,NotPresent [Unknown] - As per Instructions [facility],. [Clinic] - As per Instructions
[2018-04-24 20:25] VITALS: BP 112/62
== END 2018-04-24 21:20 | disposition home or self-care (01) ==
LOC: EDUNIT#
DX: F10.129 Alcohol abuse with intoxication, unspecified (principal)